=== PATIENT | female | born 1955 | race Caucasian/White ===

== ENCOUNTER 2017-07-20 11:15 | Inpatient (IN) ==
[2017-07-20] MEDS ORDERED: DUONEB (A & A) INH ONE (11:29)
[2017-07-20] MEDS ORDERED: PULMICORT INH ONE (11:29)
[2017-07-20] MEDS ORDERED: SOLU-MEDROL IV ONE (11:29)
[2017-07-20] MEDS ORDERED: ATIVAN ONE (11:29)
[2017-07-20] MEDS ORDERED: ATIVAN IV ONE ×2 (11:32→13:03)
[2017-07-20 11:48] LABS: BASO% 0.6 % (0.0-0.8); HEMATOCRIT 39.5 % (37.0-47.0); HEMOGLOBIN 13.9 g/dL (12.0-16.0); IMM GRAN# 0.02 X1000 (0.0-0.04); IMM GRAN% 0.2 % (0.0-0.5); LYMPH# 0.53 X1000 (1.2-3.4); LYMPH% 6.1 % (20.5-51.1); MANUAL DIFF NEEDED? NO; MCH 31.1 PG (27-31); MCHC 35.2 g/dL (33-37); MCV 88.4 FL (81-99); MONO# 1.03 X1000 (0.11-0.59); MONO% 11.8 % (1.7-9.3); MPV 9.6 FL (7.4-10.4); NEUT% 81.3 % (42.2-75.2); PLT 369 X1000 (130-400); RBC 4.47 XMIL (4.2-5.4)
[2017-07-20 11:54] LABS: BE 2.7 mmoll (-3.0-3.0); BLOOD TYPE ARTERIAL; DRAW SITE L RADIAL; METHB 1.3 % (0.0-1.5); O2(CT) 17.3 mL/dL (15.0-23.0); PO2(98.6) 56 mmHg (60-100); SAMPLE BLOOD; SAO2 91.5 % (95.0-100.0); THB 14.2 g/dL (11.5-17.4); pH(98.6) 7.32 (7.35-7.45)
[2017-07-20 12:08] LABS: AGAP 18; ALBUMIN 2.8 g/dL (3.5-5.0); ALKALINE PHOSPHATASE 152 U/L (32-104); BUN 5 mg/dL (8-22); CALCIUM 8.9 mg/dL (8.8-10.2); CHLORIDE 77 mmol/L (98-107); CK PROFILE 215 U/L (24-173); COSMO 239; GOT 26 U/L (10-30); GPT 17 U/L (10-36); MAGNESIUM 1.6 mg/dL (1.5-2.7); POTASSIUM 2.9 mmol/L (3.5-5.1); TCO2 23 mmol/L (25-35); TOTAL PROTEIN 7.6 g/dL (6.3-8.3)
[2017-07-20 12:10] LABS: SODIUM 118 mmol/L (136-145)
[2017-07-20 12:12] LABS: PTT PL 33.1 Seconds (22.6-43.9)
[2017-07-20] MEDS ORDERED: NS 1,000 ML IV ONE (12:18)
[2017-07-20 12:23] LABS: PCO2(98.6) 59 mmHg (35-45)
[2017-07-20 12:24] LABS: ALLEN TEST YES; MODALITY CANNULA
--- NOTE | 2017-07-20 12:29 | Diag Imaging Result Doc PS360 ---
EXAM: CHEST-2 VIEWS HISTORY: SOB TECHNIQUE: PA and lateral chest COMMENT: There is increased interstitial opacity bilaterally. There are no previous studies available for comparison. The heart size and pulmonary vascularity are within normal limits. IMPRESSION: Possibility of interstitial fibrosis or pneumonitis cannot be excluded. Advise comparison with previous studies. Electronically signed by Valdemar Wade 07/20/2017 12:26 PM
--- NOTE | 2017-07-20 12:30 | EKG Report ---
Test Performed on : 07/20/2017 11:52:19 AM Test Reason : CHEST PAIN Blood Pressure : / mmHG Vent. Rate : 104 BPM Atrial Rate : 104 BPM P-R Int : 156 ms QRS Dur : 090 ms QT Int : 362 ms P-R-T Axes : 080 065 063 degrees QTc Int : 476 ms Sinus tachycardia. with premature supraventricular complexes. Nonspecific ST abnormality Abnormal ECG No previous ECGs available Unconfirmed Result
[2017-07-20] MEDS ORDERED: LEVAQUIN 500 MG/D5W 500 MG/100 ML IVPB IV ONE (12:48)
[2017-07-20] MEDS ORDERED: KLOR-CON PO ONE (12:48)
[2017-07-20 12:49] LABS: CK INDEX 5.2 (0.0-2.5)
--- NOTE | 2017-07-20 13:23 | PROVIDER DOCUMENTATION ---
This chart was entered by Sherin Zendejas Scribe, acting as scribe for Sundar Romero MD. HPI-Respiratory General - General Chief Complaint: Weakness Stated Complaint: difficulty breathing Time Seen by Provider: 07/20/17 11:28 Source: patient, EMS Allergies/Adverse Reactions: Patient Allergies Allergy/AdvReac Type Severity Reaction Status Date / Time ampicillin Allergy RASH Verified 07/20/17 11:30 aspirin Allergy RASH Verified 07/20/17 11:30 Estrogens Allergy RASH Verified 07/20/17 11:30 meperidine [From Demerol] Allergy RASH Verified 07/20/17 11:30 Penicillins Allergy RASH Verified 07/20/17 11:30 tetracycline Allergy RASH Verified 07/20/17 11:30 - History of Present Illness-Resp Nature of Presenting Problem: Pt is a 62 y/o F presents to the ED via EMS for SOB. Pt states SOB has been present for "weeks" but it worsened today. Pt states cough with sputum. Pt states hx of COPD. Pt states she is a smoker. Pt denies chest pain. Quality of Pain: reports: tightness Severity in ED: reports: moderate Onset/Duration: reports: other ("weeks") Timing: reports: still present, getting worse Exposure: reports: unknown cause Cough Quality/Degree: reports: moderate, sputum (yellow) Current Respiratory Medication Therapy: Initiated see nurses note Modifying Factors: improves with: nothing Associated Symptoms: reports: cough, shortness of breath, sweaty Similar Symptoms Previously?: Yes (Pt states present for "weeks" ) Recently seen or treated by another doctor?: No Review of Systems - Adult - REVIEW OF SYSTEMS - ADULT Constitutional: reports: fatique. denies: chills, fever Eyes: reports: no symptoms reported Ears, Nose, Mouth & Throat: reports: no symptoms reported Cardiovascular: reports: no symptoms reported Respiratory: reports: cough, shortness of breath. denies: wheezing Gastrointestinal: reports: no symptoms reported Genitourinary: reports: no symptoms reported Musculoskeletal: reports: no symptoms reported Integumentary: reports: no symptoms reported Neurological: reports: no symptoms reported Psychiatric: reports: no symptoms reported Endocrine: reports: excessive sweating. denies: change in skin pigment, increased thirst Hematologic/Lymphatic: reports: no symptoms reported Allergic/Immunologic: reports: no symptoms reported All Other Systems: Reviewed and Negative Past History - Adult - PAST MEDICAL HISTORY-ADULT Review of Records: reports: Nursing Assessment Review, Medications Reviewed, Social history reviewed & non-contributory. Major Childhood Illnesses: reports: denies history Cardiovascular: reports: denies history Respiratory: reports: COPD Gastrointestinal: reports: denies history Obstetrical/Gynecological: reports: denies history Genitourinary: reports: denies history Musculoskeletal: reports: denies history Neurological: reports: denies history Endocrine/Immune: reports: denies history Other Conditions: reports: denies history - PRIOR SURGERIES/PROCEDURES Surgical/Procedure History: reports: reviewed, not pertinent, back/neck - IMMUNIZATION STATUS Childhood Immunizations: See Nurse Assessment Flu Vaccine: See Nurse Assessment - FAMILY HISTORY Family History: reviewed, not pertinent - SOCIAL HISTORY Smoking: cigarettes, greater than 1 pack/day Provider spent 3-5 mins advising pt. on dangers of tobacco.: Discussed manners to quit use, and f/u contacts for add'l counseling. Substance Use: denies Living Situation: family Physical Exam-General - PHYSICAL EXAM-ADULT Initial Vital Signs Reviewed: Yes - CONSTITUTIONAL General Appearance: alert, moderate distress, other (ill in appearance). negative: appears well, lethargic, slow to respond - EYES Eyes: PERRL/EOMI, pink conjunctivae. negative: pale conjunctivae, sunken eyes - HEAD, EARS, NOSE, MOUTH & THROAT HENMT: normal ENT inspection. negative: angioedema, hearing deficit - NECK Neck: normal inspection. negative: lymphadenopathy, tender lateral - RESPIRATORY Respiratory: chest non-tender, lungs clear, decreased breath sounds, increased rate. negative: normal breath sounds, rales, wheezing - CARDIOVASCULAR Cardiovascular: normal peripheral pulses, tachycardia. negative: regular rate, rhythm, systolic murmur - GASTROINTESTINAL (ABDOMEN) Abdominal Exam: normal bowel sounds, non tender, soft. negative: distended, rebound - LYMPHATIC Lymphatic: no adenopathy. negative: enlargement, streaking - MUSCULOSKELETAL Back Exam: normal inspection. negative: ecchymosis, swelling Extremity: normal inspection. negative: deformity, erythema, swelling - SKIN Integumentary: normal color, diaphoresis. negative: warm/dry, ecchymosis, erythema, rash - NEUROLOGIC Neurologic: grossly normal. negative: aphasia, facial droop - PSYCHIATRIC Psych/Mental Status: normal mood/affect, oriented x 3. negative: paranoid, tearful Progress - PLAN OF CARE/RESULTS Progress/Plan/Lab Results: Vital Signs - 8 hr 07/20/17 11:24 07/20/17 11:29 07/20/17 11:53 Pulse Rate 107 H 103 H 106 H Respiratory Rate 30 H 30 H 22 Blood Pressure 123/89 152/110 O2 Sat by Pulse Oximetry 83 L 92 L 97 07/20/17 12:06 07/20/17 12:49 Pulse Rate 106 H 110 H Respiratory Rate 26 H 26 H Blood Pressure 169/82 123/89 O2 Sat by Pulse Oximetry 96 96 Laboratory Results - last 24 hr 07/20/17 07/20/17 07/20/17 11:28 11:35 11:35 WBC RBC Hgb Hct MCV MCH MCHC RDW Std Deviation Plt Count MPV Immature Gran % (Auto) Neut % (Auto) Lymph % (Auto) Cook % (Auto) Eos % (Auto) Baso % (Auto) Immature Gran # (Auto) Neut # (Auto) Lymph # (Auto) Cook # (Auto) Eos # (Auto) Baso # (Auto) PT INR APTT (Factor Assay) D-Dimer Specimen Type ARTERIAL Sample Site L RADIAL pH 7.32 L pCO2 59 H* pO2 56 L HCO3 26.7 H Base Excess 2.7 Oxyhemoglobin 86.9 L* ABG O2 Sat (Calculated) 17.3 ABG O2 Saturation 91.5 L ABG Carboxyhemoglobin 3.80 H ABG Methemoglobin 1.3 Sree Test YES A-a O2 Difference 127.0 Total Hemoglobin 14.2 Lactate 1.20 Liter Flow 4.0 Blood Gas Modality CANNULA FiO2 % 36.0 Sodium 118 L* Potassium 2.9 L Chloride 77 L Carbon Dioxide 23 L Anion Gap 18 BUN 5 L Creatinine 0.4 L Estimated GFR/1.73 m2 > 60 BUN/Creatinine Ratio 13 Glucose 152 H Calculated Osmolality 239 Calcium 8.9 Magnesium 1.6 Total Bilirubin 0.60 AST 26 ALT 17 Alkaline Phosphatase 152 H Creatine Kinase 215 H Creatine Kinase Index 5.2 H CK-MB (CK-2) 11.20 H Troponin T < 0.010 Xef-B-Gqntbkonqqn Pept Total Protein 7.6 Albumin 2.8 L Globulin 5.0 Albumin/Globulin Ratio 1.0 07/20/17 07/20/17 07/20/17 11:35 11:35 11:35 WBC 8.74 RBC 4.47 Hgb 13.9 Hct 39.5 MCV 88.4 MCH 31.1 H MCHC 35.2 RDW Std Deviation 12.9 Plt Count 369 MPV 9.6 Immature Gran % (Auto) 0.2 Neut % (Auto) 81.3 H Lymph % (Auto) 6.1 L Cook % (Auto) 11.8 H Eos % (Auto) 0.0 Baso % (Auto) 0.6 Immature Gran # (Auto) 0.02 Neut # (Auto) 7.11 H Lymph # (Auto) 0.53 L Cook # (Auto) 1.03 H Eos # (Auto) 0.00 Baso # (Auto) 0.05 PT 14.0 INR 1.00 APTT (Factor Assay) 33.1 D-Dimer 1.41 H Specimen Type Sample Site pH pCO2 pO2 HCO3 Base Excess Oxyhemoglobin ABG O2 Sat (Calculated) ABG O2 Saturation ABG Carboxyhemoglobin ABG Methemoglobin Sree Test A-a O2 Difference Total Hemoglobin Lactate Liter Flow Blood Gas Modality FiO2 % Sodium Potassium Chloride Carbon Dioxide Anion Gap BUN Creatinine Estimated GFR/1.73 m2 BUN/Creatinine Ratio Glucose Calculated Osmolality Calcium Magnesium Total Bilirubin AST ALT Alkaline Phosphatase Creatine Kinase Creatine Kinase Index CK-MB (CK-2) Troponin T Bzj-Y-Vizxhmhxmot Pept 3941 H Total Protein Albumin Globulin Albumin/Globulin Ratio Orders Category Date Time Status CHEST-2 VIEWS [RAD] Stat Exams 07/20/17 11:[address] ANGIOGRM/PULMONARY ARTERIES [CT] Stat Exams 07/20/17 13:03 Ordered ABG [RESP] Routine Lab 07/20/17 11:28 Completed BLOOD CULTURE [BLDCUL] Stat Lab 07/20/17 11:29 Ordered CBC WITH ELECTRONIC DIFF [HEME] Stat Lab 07/20/17 11:35 Completed CK PROFILE [SP CHEM] Stat Lab 07/20/17 11:35 Completed COMPREHENSIVE METABOLIC PANEL [CHEM] Stat Lab 07/20/17 11:35 Com[address] D-DIMER PL [COAG] Stat Lab 07/20/17 11:35 Completed MAGNESIUM [CHEM] Stat Lab 07/20/17 11:35 Completed PRO B-NATRIURETIC PEPTIDE Stat Lab 07/20/17 11:35 Completed [address]IME WITH INR PL [COAG] Stat Lab 07/20/17 11:[address] [COAG] Stat Lab 07/20/17 11:35 Completed TROPONIN T Stat Lab 07/20/17 11:35 Completed 0.9% Sodium Chloride Inj [Ns] 1,000 ml Med 07/20/17 12:18 Active IV 250 mls/hr Albuterol 2.5MG/Ipratrop 0.5MG [Duoneb (A & A)] Med 07/20/17 11:29 Discontinued 6 ml INH NOW ONE Budesonide [Pulmicort] Med 07/20/17 11:29 Discontinued 0.5 mg INH NOW ONE Levofloxacin 500 mg/D5w [Levaquin 500 mg/D5w] Med 07/20/17 12:48 Active 500 mg in 100 ml IV NOW Lorazepam [Ativan] Med 07/20/17 11:32 Discontinued 1 mg IV NOW ONE Lorazepam [Ativan] Med 07/20/17 13:03 Discontinued 1 mg IV NOW ONE Lorazepam [Ativan] Med 07/20/17 11:29 Discontinued 2 mg .ROUTE .STK-MED ONE Methylprednisolone Sod Succ [Solu-Medrol] Med 07/20/17 11:29 Discontinued 125 mg IV NOW ONE Potassium Chloride E.r. [Klor-Con] Med 07/20/17 12:48 Discontinued 40 meq PO NOW ONE Aerosol Treatments Routine Oth 07/20/17 11:31 Active Aerosol Treatments Stat Oth 07/20/17 11:31 Active EKG [EKG] Stat Ther 07/20/17 11:29 Draft Result Diagrams: 07/20/17 11:35 07/20/17 11:35 - EKG 1 Time of EKG reading by physician:: 11:52 EKG Read and Signed by:: Sundar Romero EKG Interpretation (*Must complete 3 of following elements*): Abnormal Rate: 104 Rhythm: sinus tachycardia with premature supraventricular complexes Comments: nonspecific ST abnormality. - XRAY 1 XRAY Study: Chest Impression: Abnormal (possiblity of interstitial fibrosis or pneumonitis cannot be excluded. Advise comparison with previous studies.) - CONSULTS/PCP/HOSPITALIST Notification #1 *Consult/PCP/Hospitalist*: Dr. Matthews Time Discussed: 13:15 Reason/Comments: Dr. Romero consulted with Dr. Matthews about Pt Consult Disposition: Admit Departure - Departure Date of Disposition Decision: 07/20/17 Time of Disposition Decision: 13:15 DIAGNOSIS: COPD exacerbation, Respiratory failure Disposition: ADMITTED INPATIENT 09 Certified Medical Emergency: Emergent Condition: Serious Referrals and Follow-Ups: None,PCP [Primary Care Provider] - - Critical Care Note This patient required my direct & personal management of CC.: Yes Total Time (mins): 40 Critical Care Statement: This patient required my direct personal management to treat or rule out processes, the absence of which, could potentiallly result in sudden, clinically significant life or limb threatening deterioration. Attestation - Physician/ DASHA Attestation Patient care was provided by Advanced Practice Provider:: No The physician spent face to face time with patient:: Yes Advanced Practice Provider documentation review:: Supervising physician onsite and consulted in the evaluation and care of this patient. The physician did have a face to face encounter with the patient. This chart was documented by the indicated scribe, (Sherin Zendejas Scribe) and accurately reflects the services I performed and decisions made by me, Sundar Romero MD, as attested by the provider's signature.
--- NOTE | 2017-07-20 13:47 | Diag Imaging Result Doc PS360 ---
EXAM: CT ANGIOGRM/PULMONARY ARTERIES HISTORY: SOB with elevated D-dimer TECHNIQUE: CT chest with intravenous contrast. Arterial protocol with MIP images. Dose reduction technique. COMPARISON: None. FINDINGS: No pleural effusions. No cardiomegaly. No thoracic aortic aneurysm or dissection. Normal opacification of the pulmonary arteries and their major branches. There are several mildly enlarged mediastinal lymph nodes. There are multifocal patchy nodular infiltrates bilaterally. IMPRESSION: 1.No pulmonary emboli 2.Multifocal bilateral patchy nodular infiltrates Electronically signed by Issac Ron 07/20/2017 1:45 PM
[2017-07-20] MEDS: ATIVAN IV PRN ×2 (15:50→19:45)
[2017-07-20] MEDS: NS 1,000 ML IV SCH ×2 (15:51→23:25)
[2017-07-20] MEDS: NICODERM PATCH TD SCH (15:53)
[2017-07-20] MEDS: CLINDAMYCIN 600 MG/NS 600 MG/50 ML IVPB IV SCH ×2 (15:58→23:24)
[2017-07-20] MEDS: LEVOPHED 8 MG in D5 1/2 NS 250 ML IV SCH ×2 (16:28→23:26)
[2017-07-20 17:13] LABS: BE -1.4 mmoll (-3.0-3.0); BLOOD TYPE ARTERIAL; DRAW SITE R BRACHIAL; METHB 1.1 % (0.0-1.5); O2(CT) 18.3 mL/dL (15.0-23.0); PO2(98.6) 99 mmHg (60-100); SAMPLE BLOOD; SAO2 99.1 % (95.0-100.0); THB 13.6 g/dL (11.5-17.4); pH(98.6) 7.27 (7.35-7.45)
[2017-07-20 17:17] LABS: PCO2(98.6) 58 mmHg (35-45)
[2017-07-20 17:18] LABS: MODALITY BI PAP; SRATE 12 BPM
[2017-07-20 17:32] LABS: BILIRUBIN URINE NEGATIVE (NEGATIVE); BLOOD URINE 2+ (NEGATIVE); CLARITY CLEAR (CLEAR); COLOR YELLOW; GLUCOSE URINE NEGATIVE (NEGATIVE); LEUKOCYTES URINE TRACE (NEGATIVE); NITRITE URINE NEGATIVE (NEGATIVE); PH URINE 6.5; UROBILINOGEN URINE NORMAL
[2017-07-20 17:43] LABS: URINE CAST NONE SEEN /LPF; URINE CRYSTAL NONE SEEN /HPF; URINE CULTURE PL NEEDED? YES; URINE EPITHELIAL CELLS >10 /HPF (<10); URINE SOURCE CATH; URINE WBC <10 /HPF (<10)
--- NOTE | 2017-07-20 17:52 | Extremity Venous Study ---
EXAM: Venous U/S Bilateral Legs HISTORY: elevated ddimer TECHNIQUE: Venous ultrasound of the lower extremities with color Doppler and compression COMMENT: The deep veins of the lower extremities are compressible and demonstrate color Doppler flow, although there is pulsatile flow. IMPRESSION: No evidence of deep venous thrombosis. Pulsatile venous flow which is suggestive of right heart failure. Electronically signed by Valdemar Wade 07/20/2017 5:49 PM
--- NOTE | 2017-07-20 18:17 | HISTORY AND PHYSICAL ---
PRIMARY CARE PHYSICIAN: Out of state in [place]. CHIEF COMPLAINT: Shortness of breath for the past several weeks that got worse today. HISTORY OF PRESENTING ILLNESS: This is a 62-year-old, female who presents with family to [facility] ER with complaints of shortness of breath that has been present for the past several weeks but worsened today. Workup in the ER showed a chest x-ray. The possibility of interstitial fibrosis or pneumonitis could not be excluded. LABORATORY DATA: White blood cell count that was normal at 8.74. She had an elevated D-dimer of 1.41. ABG showed a pH of 7.32, pCO2 of 59, PO2 56 bicarbonate 26.7, oxyhemoglobin 86.9 on 4 L via nasal cannula. She was then placed on BiPAP. Her sodium was 118, potassium 2.9, chloride was 77. Cardiac enzymes showed a creatine kinase of 215, CK-MB of 11.20 with a negative troponin of 0.010. We did a pulmonary arteriogram due to the elevated D-dimer that showed no pulmonary emboli but it did show multifocal bilateral patchy nodular infiltrates. She had some hypertension when she first arrived at 152/110 but now has dropped her pressure to 62/49 despite IV hydration so she is also noted to be mildly tachycardic at 110, so we will start her on a Levophed drip per protocol to keep her systolic blood pressure greater than 100 and infuse to maintain a map of 60 mmHg. She is being admitted to the Intensive Care Unit for further evaluation and treatment. PAST MEDICAL HISTORY: COPD and hypertension. PAST SURGICAL HISTORY: Back and neck surgery. FAMILY HISTORY: Noncontributory. SOCIAL HISTORY: She currently lives with family. She is a 3 pack a day smoker for many years but an unknown amount. Family at bedside could not give a specific date. No alcohol or illicit drug use. ALLERGIES: Ampicillin, aspirin, estrogen, meperidine, penicillin and tetracycline. HOME MEDICATIONS: We do not have a current list at this time as she is from [place] state and unable to get this information. We will attempt to get this from family. LABORATORY DATA: White blood cell count of 8.74, hemoglobin of 13.9, hematocrit 39.5, platelets of 369,000. PT and INR of 14 and 1.0 with a D-dimer of 1.41. ABG showed a pH of 7.32, pCO2 of 59, PO2 56, bicarbonate 26.7, oxyhemoglobin of 86.9 and that was on 4 L via nasal cannula. She is currently on BiPAP. Sodium of 118, potassium 2.9, chloride 77, CO2 23, BUN 5, creatinine 0.4, glucose 152, creatine kinase of 215, CK-MB of 11.20, troponin of less than 0.010 with a proBNP of 3941. Chest x-ray showing the possibility of interstitial fibrosis or pneumonitis could not be excluded. Pulmonary arteriogram showed no evidence of pulmonary emboli but multifocal bilateral patchy nodular infiltrates. EKG showed sinus tachycardia with PVC at 104. REVIEW OF SYSTEMS: Unable to obtain. PHYSICAL EXAMINATION: VITAL SIGNS: On arrival, she had a pulse of 107, respirations 30, blood pressure 123/89, she was saturating 83% on room air. Her blood pressure stayed at 152/110 to 151/63 until she arrived to the unit. Now she currently has a pulse of 110 with a blood pressure of 62/49. GENERAL: This is a 62-year-old, female, lying in bed unable answer questions at this time. She is unable to answer due to having her BiPAP in place and is confused. HEENT: Normocephalic and atraumatic. Pupils are equal, round, reactive to light. Extraocular movements are intact. Oropharynx and nares are clear. NECK: Supple. LUNGS: Decreased breath sounds to all lung siu. Equal lung expansion and chest wall movement noted. HEART: Regular rate and rhythm. No murmurs, rubs, or gallops. ABDOMEN: Soft, nontender, nondistended. Bowel sounds are present x4 quadrants. EXTREMITIES: No clubbing, cyanosis, or edema. NEUROLOGICAL: Unable to assess at this time. ASSESSMENT: 1. Acute respiratory failure. 2. Bilateral pneumonia. 3. Acute chronic obstructive pulmonary disease exacerbation. 4. Hyponatremia. 5. Hypokalemia. 6. Elevated D-dimer. 7. Hypotension. PLAN: 1. She was admitted to the Intensive Care Unit and placed on telemetry, O2 per protocol and is currently on BiPAP. 2. We will do a bilateral lower extremity venous Doppler. We will check another BMP at 5 p.m. today. 3. She will be on Levophed per protocol to keep her systolic blood pressure greater than 100, Levaquin 500 mg IV q.24 hours, clindamycin 600 IV q.8 hours, DuoNebs q.4 hours and Solu-Medrol 80 mg IV q.8 hours, nicotine patch 21 mg transdermally daily, normal saline at 100 mL an hour, Ativan 1 mg IV q.4 hours p.r.n. for agitation. 4. We will recheck labs in the a.m. She was supplemented with potassium in the emergency room so we will not give anymore at this time. Dictated by WILLIAN Marquez for Hermes Matthews MD cc: WILLIAN Marquez MD
[2017-07-20 18:26] LABS: AGAP 15; BUN 8 mg/dL (8-22); CALCIUM 8.7 mg/dL (8.8-10.2); CHLORIDE 82 mmol/L (98-107); COSMO 246; POTASSIUM 3.6 mmol/L (3.5-5.1); SODIUM 121 mmol/L (136-145); TCO2 25 mmol/L (25-35)
[2017-07-20] MEDS: DUONEB (A & A) INH SCH ×2 (19:00→22:30)
[2017-07-20] MEDS ORDERED: ATIVAN IV PRN (20:16)
[2017-07-20] MEDS: ATIVAN IV SCH ×2 (20:32→21:51)
[2017-07-20] MEDS: SOLU-MEDROL IV SCH (20:54)
[2017-07-21] MEDS: NS 1,000 ML IV SCH ×3 (01:08→20:00)
[2017-07-21] MEDS: DUONEB (A & A) INH SCH ×6 (02:50→22:48)
--- NOTE | 2017-07-21 03:52 | HISTORY AND PHYSICAL ---
ADDENDUM: The patient was seen and examined by myself as well as nurse practitioner. A full note per nurse practitioner. The patient currently is nonverbal, she is on BiPAP. The history is per her daughter notes that Ms. Ring does drink at least 6 beers a day, stopped 4-5 days ago. She has been in town approximately a week. She has had increased cough, congestion, increased shortness of breath. Today if symptoms worsen so she was brought to the emergency department. PHYSICAL: Vitals: Temperature 98.2 degrees, pulse 102, respiratory 32, BP 98/47 currently on 100% non-rebreather on BiPAP as well as on Levophed. Lungs: Are decreased breath sounds bilaterally. Abdomen: Soft. Will admit patient to the ICU, BiPAP, Levophed, antibiotics, will follow. Certainly concerned for DTs as she stopped drinking approximately 4-5 days ago. Will continue Ativan and will follow. cc: Hermes Matthews MD
[2017-07-21] MEDS: SOLU-MEDROL IV SCH ×3 (04:24→21:18)
[2017-07-21] MEDS: ATIVAN IV SCH (04:24)
[2017-07-21] MEDS: CLINDAMYCIN 600 MG/NS 600 MG/50 ML IVPB IV SCH ×2 (06:35→18:04)
[2017-07-21 06:45] LABS: BASO% 0.1 % (0.0-0.8); HEMATOCRIT 34.8 % (37.0-47.0); HEMOGLOBIN 11.7 g/dL (12.0-16.0); IMM GRAN# 0.05 X1000 (0.0-0.04); IMM GRAN% 0.6 % (0.0-0.5); LYMPH# 0.42 X1000 (1.2-3.4); LYMPH% 5.1 % (20.5-51.1); MANUAL DIFF NEEDED? YES; MCH 29.9 PG (27-31); MCHC 33.6 g/dL (33-37); MONO# 0.62 X1000 (0.11-0.59); MONO% 7.5 % (1.7-9.3); MPV 9.8 FL (7.4-10.4); NEUT% 86.7 % (42.2-75.2); PLT 489 X1000 (130-400); RBC 3.91 XMIL (4.2-5.4)
[2017-07-21] MEDS: LEVOPHED 8 MG in D5 1/2 NS 250 ML IV SCH ×4 (06:48→15:07)
[2017-07-21 06:52] LABS: AGAP 13; BUN 14 mg/dL (8-22); CALCIUM 8.4 mg/dL (8.8-10.2); CHLORIDE 90 mmol/L (98-107); COSMO 263; POTASSIUM 3.3 mmol/L (3.5-5.1); SODIUM 128 mmol/L (136-145); TCO2 25 mmol/L (25-35)
[2017-07-21 07:27] LABS: BANDS 1 % (0-1); LYMPHS 4 % (21-51)
[2017-07-21] MEDS: NICODERM PATCH TD SCH (08:12)
[2017-07-21] MEDS: ATIVAN IV PRN (09:35)
[2017-07-21] MEDS ORDERED: HALDOL IV PRN (11:36)
[2017-07-21] MEDS ORDERED: ATIVAN IV PRN (11:36)
[2017-07-21] MEDS ORDERED: SODIUM CHLORIDE 0.9% INJ SCH (11:45)
[2017-07-21] MEDS ORDERED: PROTONIX IV SCH (11:45)
[2017-07-21] MEDS ORDERED: LOVENOX SUBQ SCH (11:45)
[2017-07-21 12:15] LABS: BLOOD TYPE ARTERIAL; DRAW SITE R RADIAL; METHB 1.6 % (0.0-1.5); O2(CT) 15.5 mL/dL (15.0-23.0); PO2(98.6) 78 mmHg (60-100); SAMPLE BLOOD; THB 11.7 g/dL (11.5-17.4)
[2017-07-21 12:23] LABS: ALLEN TEST YES; MODALITY BI PAP; PCO2(98.6) 53 mmHg (35-45)
--- NOTE | 2017-07-21 12:52 | PROGRESS NOTE ---
DATE: 07/21/2017 SUBJECTIVE: Patient is disoriented and confused, on the BiPAP. She had issues with agitation yesterday and came, and ended up in respiratory failure, shock, and is in the ICU on BiPAP and pressors. OBJECTIVE: Vital Signs: Blood pressure 113/52, heart rate of 97, respiratory rate of 23, 98% on 30%, 97.1 temperature. No fever noted. Cardiovascular: Tachycardic. Pulmonary: Diffuse end- expiratory wheezes. GI: Soft, nontender, nondistended. Bowel sounds were positive. Extremities: No clubbing or cyanosis. Lymphatics: No peripheral edema. Vascular: Her foot is cold. Pulses, I could not palpate pulse at the dorsalis pedal pulse or the popliteal/ foot is not discolored per se but is definitely colder than her other foot. We are have difficulty getting Dopplering of the pulse as well. PROBLEM LIST: 1. Acute respiratory failure, hypercapnic, hypoxic, secondary to reported pneumonia. We will continue empiric antibiotics and pulmonary toilet. 2. Chronic obstructive pulmonary disease exacerbation. She is on steroids, antibiotics, and breathing treatments. We will follow. I agree with ruling out a deep venous thrombosis. 3. Hyponatremia and hypokalemia. We are supplementing and following. Hyponatremia likely related to chronic alcohol use, dehydration. She is not on any medications that would necessarily lower her sodium and again that has clinically improved. We will check urine electrolytes and follow. 4. Also probably need to rule out congestive heart failure. She does have an elevated proBNP and interstitial infiltrates. 5. Pulseless foot. We will get arterial Dopplers. I think she will end up needing arterial studies and she may need surgical intervention if those studies are abnormal. If there is decreased flow, we will need to get a CT angiogram of her leg and a vascular consult. 6. Shock. We are still trying to work on getting her off blood pressure medications, vasopressor. She currently is on Levophed. I am going to give her a bolus of fluid and see if we can try to get her off of that. 7. Encephalopathy, may be multifactorial related to her sodium, related to alcohol use, possible withdrawal. Apparently, she has been off alcohol for 4 or 5 days. I will go ahead and get a head CT too. She has a nonfocal examination, just because she is otherwise unstable. DISPOSITION: Pending her clinical course. cc: Austin Casey MD
[2017-07-21] MEDS ORDERED: LEVAQUIN 500 MG/D5W 500 MG/100 ML IVPB IV SCH (13:00)
[2017-07-21] MEDS ORDERED: M V I IV SCH ×6 (14:00)
[2017-07-21] MEDS ORDERED: FOLIC ACID IV SCH ×6 (14:00)
[2017-07-21] MEDS ORDERED: THIAMINE IV SCH ×6 (14:00)
[2017-07-21] MEDS ORDERED: [UNRECOGNIZED DRUG - OTHER] IV SCH ×6 (14:00)
[2017-07-21] MEDS ORDERED: POTASSIUM CHLORIDE IV SCH ×6 (14:00)
[2017-07-21] MEDS ORDERED: HEPARIN 25,000 UNITS/D5W 25,000 UNIT/250 ML IV.SOLN IV SCH (15:00)
[2017-07-21] MEDS ORDERED: MUCOMYST 20% XX SCH (15:00)
--- NOTE | 2017-07-21 15:11 | Diag Imaging Result Doc PS360 ---
EXAM: CT HEAD W/O CONTRAST INDICATION: encephalopathy TECHNIQUE: COMPARISON: None. FINDINGS: There is no definite acute infarct given the limited sensitivity of CT versus MRI. There is no discrete intracranial mass, mass effect, or intracranial hemorrhage. The surrounding soft tissues and bony structures are essentially unremarkable. IMPRESSION: No evidence of acute intracranial pathology. Electronically signed by Cliff Santiago 07/21/2017 3:09 PM
--- NOTE | 2017-07-21 16:15 | Diag Imaging Result Doc PS360 ---
EXAM: CT ANGIOGRAM/AORTA W/RUNOFF INDICATION: cold pulseless, foot TECHNIQUE: In addition to standard thin section axial CTA images, coronal and sagittal reformations and MIPS were obtained. COMPARISON: None. FINDINGS: There is extensive atherosclerotic calcification involving the abdominal aorta that is worst distally where there is fairly severe aortic stenosis. However, it does appear to remain patent. There is no aortic aneurysm. There is extensive iliac artery atherosclerotic disease with high-grade stenosis of the left common iliac artery and complete occlusion of the right common iliac artery. There is reconstitution on the right at the common femoral artery. There is mild atherosclerotic calcification at the origins of the SMA and celiac trunk with mild narrowing. There remain patent. There is mild right renal artery stenosis and moderate left renal artery stenosis at the origins. There is excessive motion artifact at the lung bases. However, there is patchy airspace infiltrate at the right lung base. There is no evidence of acute pathology involving the abdomen or pelvis. Right lower extremity: As stated above, the occluded right external iliac artery is reconstituted at the common femoral artery. There is mild atherosclerotic calcification involving the common femoral artery. It remains patent. There is atherosclerotic calcification involving the superficial femoral artery that becomes fairly severe distally where there is focal subtotal occlusion. It is reconstituted, however. There is extensive atherosclerotic disease involving the popliteal artery. However, there is excessive motion artifact throughout its course to it is difficult to evaluate it. The anterior tibial artery is patent until it reaches the ankle and cannot be identified distal to this. The posterior tibial artery remains patent throughout its course and provides runoff to the foot. The peroneal artery is diminutive distally and cannot be identified below the level of the ankle. Left lower extremity: There is atherosclerotic calcification involving the common femoral artery with mild narrowing. There is patchy atherosclerotic calcification throughout the course of the superficial femoral artery, which is moderate to severe distally where there is intermittent moderate to severe stenosis. There is popliteal artery atherosclerotic disease that is fairly extensive proximally where the artery is ectatic. It remains patent. There is mild atherosclerotic calcification at the proximal anterior tibial artery. It remains patent throughout its course providing runoff to the foot. The posterior tibial artery is patent throughout its course providing runoff to the foot. The peroneal artery is diminutive distally and cannot be identified below the level of the ankle. IMPRESSION: 1.Extensive aortoiliac atherosclerotic disease and atherosclerotic disease involving the arteries of both lower extremities as detailed above. 2.Patchy mild airspace consolidation at the right lung base. Electronically signed by Cliff Santiago 07/21/2017 4:13 PM
--- NOTE | 2017-07-21 17:37 | CONSULTATION ---
DATE OF CONSULTATION: 07/21/2017 REQUESTING PHYSICIAN: Hermes Matthews MD REASON FOR CONSULTATION: Pulseless right lower extremity. HISTORY OF PRESENT ILLNESS: A 72-year-old female who is currently altered and unable to give further history who apparently showed up at the emergency department at [facility] on 07/20/2017 with shortness of breath that had been getting worse in the last several weeks, but had acute exacerbation in the last day. There was a chest x-ray in the ER that showed interstitial fibrosis or pneumonitis that could not be excluded. She was admitted and started on BiPAP. It was noted this morning that she had what appeared to be a pulseless right lower extremity. The patient again is altered and I am unable to get any significant history, although apparently by report she has taken Pletal before. There is some concern that she might be going into delirium tremens from alcohol withdrawal. Again, there is no family to give a full history. PAST MEDICAL HISTORY: COPD and hypertension. PAST SURGICAL HISTORY: Back and neck surgery. SOCIAL: Lives with family. Apparently a smoker. Again, there is some report of alcohol intake, but I cannot ask the patient that directly because she is altered. ALLERGIES: Ampicillin, aspirin, estrogen, tetracycline. HOME MEDICATIONS: There was a report that she did take Pletal. FAMILY HISTORY: Unable to obtain secondary to patient's mental status. REVIEW OF SYSTEMS: Unable to obtain secondary to patient's mental status. PHYSICAL EXAMINATION: Current Vital Signs: Patient is currently afebrile. Temperature 98 degrees, pulse 114. Blood pressure 100 systolic. She is on Levophed drip. O2 saturation in the 90s on BiPAP. General: Altered, but resting in bed. She is currently undergoing an echocardiogram. HEENT: Normocephalic, atraumatic. Pupils equal, round, reactive to light. Mucous membranes moist. Oropharynx benign. She does have a BiPAP machine on. Neck: Supple. Trachea midline. Cardiovascular: Regular rate and rhythm. Lungs: Some coarse sounds noted. Abdomen: Soft, nontender, nondistended. Extremities: The right leg is cool compared to the left, but does not have any changes to suggest acute ischemia. She does have a slightly delayed capillary refill on that side. Vascular: She has what appears to be at least a biphasic dorsalis pedis and posterior tibial on the left foot. Difficult to find signals by Doppler on the right foot, although again, she has slightly delayed capillary refill. Neurologic: Patient is agitated. LABORATORY: CT scan independently reviewed and radiology report reviewed. It looks like the patient probably has right aortoiliac disease, but has reconstitution via her inferior epigastric artery on the right. This looks like along chronic problem. ASSESSMENT AND PLAN: A 62-year-old female with respiratory failure, shortness of breath, possible alcohol withdrawal and cool right lower extremity. 1. Respiratory distress and shortness of breath. At this time, she is on BiPAP. She is being transferred over to [facility] for Pulmonary support. At this time, we will watch her closely. She may need to be intubated, but we will defer to Pulmonology on this one. 2. Possible alcohol withdrawal. At this time, continued supportive measures. Hospitalist is following. 3. Multiple medical comorbidities. Currently being managed by the hospitalist service. 4. A pulseless right lower extremity. At this time, I am unable to get further history of any symptoms of claudication given her mental status. The way the CT angiography looks, it looks like it is likely a chronic problem because she has reconstitution of her vasculature and she does have flow noted all the way down to her calf on there CT angiography. I reviewed the images with Dr. Gilmore. She will likely need some kind of vascular intervention, but she is currently on Levophed, so we will need to get her of Levophed to know fully what her vascular exam is like. Once she is off Levophed, could consider stenting or bypass of this area, depending on her overall clinical condition. I appreciate the consult. cc: Abelardo Andrade MD
[2017-07-21] MEDS ORDERED: LEVOPHED 8 MG in D5 1/2 NS 250 ML IV SCH ×2 (19:30→20:30)
[2017-07-21] MEDS ORDERED: VANCOMYCIN IV PER PHARMACY MISC SCH (19:45)
[2017-07-21] MEDS: MUCOMYST 20% XX SCH (21:13)
[2017-07-21] MEDS ORDERED: VANCOMYCIN 1,250 MG in NS 250 ML IV ONE (22:00)
[2017-07-22] MEDS ORDERED: CLINDAMYCIN 600 MG/NS 600 MG/50 ML IVPB IV SCH (02:00)
[2017-07-22] MEDS: ATIVAN IV PRN ×7 (02:25→22:23)
[2017-07-22] MEDS: DUONEB (A & A) INH SCH ×6 (03:10→23:57)
[2017-07-22] MEDS: SOLU-MEDROL IV SCH ×3 (04:03→20:43)
[2017-07-22 04:32] LABS: ALLEN TEST YES; BE 1.7 mmoll (-3.0-3.0); BLOOD TYPE ARTERIAL; DRAW SITE R RADIAL; METHB 0.7 % (0.0-1.5); O2(CT) 17.3 mL/dL (15.0-23.0); PO2(98.6) 138 mmHg (60-100); SAMPLE BLOOD; SAO2 99.5 % (95.0-100.0); THB 12.4 g/dL (11.5-17.4); pH(98.6) 7.31 (7.35-7.45)
[2017-07-22 04:34] LABS: MODALITY BI PAP; PCO2(98.6) 58 mmHg (35-45)
[2017-07-22] MEDS: HALDOL IV PRN (04:50)
[2017-07-22] MEDS: NS 1,000 ML IV SCH (05:03)
[2017-07-22 05:05] LABS: MAGNESIUM 2.4 mg/dL (1.5-2.7)
[2017-07-22] MEDS: MORPHINE IV PRN ×3 (05:36→22:24)
[2017-07-22 06:17] LABS: AGAP 12; ALBUMIN 2.6 g/dL (3.5-5.0); ALKALINE PHOSPHATASE 108 U/L (32-104); BUN 8 mg/dL (8-22); CALCIUM 7.9 mg/dL (8.8-10.2); CHLORIDE 101 mmol/L (98-107); COSMO 275; DIRECT BILIRUBIN < 0.20 mg/dL (0.00-0.20); GOT 13 U/L (10-30); GPT 10 U/L (10-36); POTASSIUM 3.9 mmol/L (3.5-5.1); SODIUM 138 mmol/L (136-145); TCO2 25 mmol/L (25-35); TOTAL BILIRUBIN 0.19 mg/dL (0.20-1.00); TOTAL PROTEIN 5.1 g/dL (6.3-8.3)
--- NOTE | 2017-07-22 06:28 | PROGRESS NOTE ---
DATE: 07/22/2017 SUBJECTIVE: Patient transported from [facility] ICU to [facility]. No major issues reported by the nursing staff. She has been a little bit agitated. She is off pressors. OBJECTIVE: Vital Signs: Patient's current temperature is 98.2 degrees, most recent pulse 115, most recent blood pressure 158/100, O2 saturation 99% on BiPAP. HEENT: Normocephalic, atraumatic. Pupils equal, round, react to light. Mucous membranes moist. Oropharynx benign. BiPAP machine in place. Neck: Supple. Trachea midline. Cardiovascular: Regular rate and rhythm. Some mild tachycardia. Lungs: Some coarse sounds noted and rhonchi noted. Abdomen: Soft, nontender, nondistended. Extremities: Essentially unchanged from last night. Her right leg is slightly cooler than her left but does not appear to be acutely threatened. They could not find signals in the right lower extremity but again, she does have a slightly delayed capillary refill, but again, this appears to not be any different from last night. Laboratory: ABG reviewed. ASSESSMENT AND PLAN: A 62-year-old, female with cool right lower extremity. 1. Cool right lower extremity. At this time, this seems to be more of a chronic problem. Again, it is difficult to get a full history from the patient. She has been mildly altered but I suspect the fact that she has been on Pletal in the past means that she has probably had some chronic long-standing problems. CTA of her lower extremity shows that she does have perfusion, although it is likely not in any major named vessel to find easily on exam. I suspect once she is resuscitated and stays off her Levophed for a while, which she is right now, she could be considered for surgical intervention. I will discuss her further with Dr. Gilmore who will take over while I am away. 2. Respiratory distress. At this time, she is on BiPAP. Would defer to hospitalist and pulmonary. 3. Possible alcohol withdrawal. At this time, continue supportive measures. 4. Multiple medical comorbidities, currently being managed by the hospitalist service. cc: Abelardo Andrade MD
--- NOTE | 2017-07-22 07:29 | Diag Imaging Result Doc PS360 ---
EXAM: CHEST-PORTABLE HISTORY: dyspnea TECHNIQUE: Portable COMPARISON: 07/20/2017 FINDINGS: The lungs are well expanded. The heart is not enlarged. There are increased interstitial markings which may be due to mild vascular distention. This is slightly less pronounced than on the prior exam. No consolidation. No pleural effusions identified. There has been prior surgery to the lower neck. IMPRESSION: Mild interval improvement. Electronically signed by Issac Ron 07/22/2017 7:26 AM
[2017-07-22] MEDS: MUCOMYST 20% XX SCH ×2 (07:52→23:57)
[2017-07-22] MEDS ORDERED: LASIX IV ONE ×2 (07:53→18:00)
[2017-07-22] MEDS: NICODERM PATCH TD SCH (08:16)
[2017-07-22 08:49] LABS: HEMATOCRIT 31.2 % (37.0-47.0); HEMOGLOBIN 10.8 g/dL (12.0-16.0); MCH 32.1 PG (27-31); MCHC 34.6 g/dL (33-37); MCV 92.9 FL (81-99); MPV 9.9 FL (7.4-10.4); RBC 3.36 XMIL (4.2-5.4)
--- NOTE | 2017-07-22 08:53 | CONSULTATION ---
DATE OF CONSULTATION: 07/22/2017 REFERRING PHYSICIAN: Austin Casey MD CHIEF COMPLAINT: Shortness of breath. HISTORY OF PRESENT ILLNESS: This 62-year-old female with a past medical history of chronic obstructive pulmonary disease and hypertension, that presented to the hospital with complaints of shortness of breath. Her symptoms have been present for a couple weeks and are progressively worse. The patient is altered and unable to provide a detailed history. She has been admitted for evaluation of her acute respiratory failure, pneumonia, chronic obstructive pulmonary disease exacerbation, as well as cool lower extremity with decreased pulses. REVIEW OF SYSTEMS: Unable to obtain. PAST MEDICAL HISTORY: Chronic obstructive pulmonary disease and hypertension. PAST SURGICAL HISTORY: Back and neck surgery. FAMILY HISTORY: Noncontributory. ALLERGIES: Ampicillin, aspirin, estrogen, meperidine, penicillin, and tetracycline. SOCIAL HISTORY: The patient lives at home with her family. Has a history of smoking 3 packs per day, but current amount is unknown. Denies alcohol or illicit drug use. PHYSICAL EXAMINATION: Vital Signs: Blood pressure 138/72, heart rate 95, respiratory rate 24, temperature 98.2, oxygen saturation 95%. General: Awake, altered, no acute distress noted. HEENT: Normocephalic, atraumatic. Pupils equal, round, and reactive to light. Cardiovascular: S1-S2 present. Chest: Reduced entry. Abdomen: Soft. Bowel sounds heard in all quadrants. Extremities: Right leg cooler than left, with diminished pulses. Neurological : Altered. LABS/INVESTIGATIONS: Sodium 138, potassium 3.9, chloride 101, CO2 25, anion gap 12. BUN 8, creatinine 0.4. Glucose 124. Blood gas reveals a pH 7.31, pCO2 of 58, pO2 138 , HCO3 26.3, base excess 1.7. Saturated oxygen 100. Chest x-ray performed on 07/22/2017 shows increased interstitial markings which may be due to mild vascular distention. No pleural effusions or consolidations identified. ASSESSMENT AND PLAN: This is a 62-year-old female with a past medical history of chronic obstructive pulmonary disease and hypertension. Was admitted to the hospital for evaluation of a cool right lower extremity with diminished pulses. CTA shows perfusion. Surgery is following. Also respiratory distress with respiratory failure. CHF and possible pneumonia. Shock is better and we stopped pressors. Possibility of DT's. Currently using BiPAP. Also antibiotics for suspected pneumonia. Steroids and GI prophylaxis. Further recommendations pending diagnostic studies. Thank you for the courtesy of this consult. cc: Alexis Limon MD MTDD
[2017-07-22 09:41] LABS: ALLEN TEST YES; BE 5.4 mmoll (-3.0-3.0); BLOOD TYPE ARTERIAL; DRAW SITE R RADIAL; O2(CT) 16.8 mL/dL (15.0-23.0); PO2(98.6) 108 mmHg (60-100); SAMPLE BLOOD; SAO2 99.3 % (95.0-100.0); THB 12.2 g/dL (11.5-17.4); pH(98.6) 7.35 (7.35-7.45)
[2017-07-22 09:42] LABS: MODALITY BI PAP
[2017-07-22 09:43] LABS: PCO2(98.6) 59 mmHg (35-45)
--- NOTE | 2017-07-22 09:51 | PROGRESS NOTE ---
DATE: 07/22/2017 SUBJECTIVE: Ms. Ring is a 62-year-old. She was admitted on 07/20, I believe to [facility]. She presented, as I understand with shortness of breath and had been experiencing shortness of breath for a couple weeks. A 62-year-old family with family in [facility]. Presented with complaints of shortness of breath. Had been present for several weeks and worsened. Chest x- ray showed possibility of interstitial fibrosis and pneumonitis could not be excluded. Was admitted. She appeared to have chronic obstructive pulmonary disease exacerbation, hypertension, and questionable bilateral pneumonia. She was noted to have poor pulse in her right lower extremity. Concerned about poor circulation. They did give her some potassium and felt she needed to come over here especially for evaluation of her right lower extremity. I saw her the morning of 07/22/2017. She was sitting up short of breath and on BiPAP. She has remained afebrile. Temperature 97 degrees, pulse 115, respirations 22, blood pressure 133/81. OBJECTIVE: HEENT: Pupils are equal and round. Lungs: Clear in all lung siu. Cardiovascular: Regular rhythm and rate without murmur or S3. Abdomen: Soft. Skin: Warm and dry. URINE OUTPUT: Is over about 3400 mL. LAB: White count 5070, hematocrit 31, platelet count 384,000. Sodium 138, potassium 3.9, chloride 101, bicarb 25. BUN 8, creatinine 0.48. Calcium 7.9. ASSESSMENT AND PLAN: Chronic obstructive pulmonary disease exacerbation. Continue bronchodilators. Continue BiPAP at night. She is becoming more agitated and tachycardic. There was concern about alcohol withdrawal, possibly delirium tremens developing. We will treat withdrawals with some Ativan, being careful not to suppress respiratory drive, but I am not sure if that is going to be possible so will watch and see how we do. I will try some phenobarbital in addition to the Ativan. Continue antibiotics. Dr. Limon is following. She is on vancomycin and Levaquin. cc: Sree Harper MD
--- NOTE | 2017-07-22 10:47 | ECHO REPORT ---
ORDER DATE: 07/21/2017 INDICATION: Respiratory distress, shortness of breath, alcohol abuse. FINDINGS: 1. The right atrium appears normal in size at 3.3 cm. 2. Mild tricuspid regurgitation. RV systolic pressure 47. 3. Normal RV size and systolic function. 4. Trace pulmonic insufficiency. 5. Normal left atrial size at 2.8 cm. 6. No mitral valve prolapse. Trace mitral regurgitation. 7. Normal LV size, end-diastolic dimension of 4.2. Normal wall thicknesses with posterior and interventricular septal wall thickness of 0.8 cm each. Normal LV systolic function. Estimated EF of 65%. Definity echo contrast was used to delineate the endocardial borders. There is no obvious segmental wall motion abnormalities. 8. Aortic valve opens well. No evidence of stenosis or insufficiency. 9. Aorta appears normal in visualized segments. 10. No pericardial effusion seen. cc: MD Austin Moe MD
[2017-07-22] MEDS: PHENOBARBITAL IV PRN ×2 (12:31→20:44)
[2017-07-22] MEDS: LEVAQUIN 500 MG/D5W 500 MG/100 ML IVPB IV SCH (12:34)
[2017-07-22] MEDS: PROTONIX IV SCH (12:34)
[2017-07-22] MEDS: LOVENOX SUBQ SCH (12:37)
[2017-07-22] MEDS ORDERED: SOLU-MEDROL IV SCH (13:00)
[2017-07-22] MEDS: M V I IV SCH ×6 (14:39)
[2017-07-22] MEDS: POTASSIUM CHLORIDE IV SCH ×6 (14:39)
[2017-07-22] MEDS: THIAMINE IV SCH ×6 (14:39)
[2017-07-22] MEDS: [UNRECOGNIZED DRUG - OTHER] IV SCH ×6 (14:39)
[2017-07-22] MEDS: FOLIC ACID IV SCH ×6 (14:39)
[2017-07-22] MEDS: VANCOMYCIN 1 GM/NS 1 GM/250 ML IVPB IV SCH (21:14)
[2017-07-23] MEDS: ATIVAN IV PRN ×6 (02:33→21:51)
[2017-07-23] MEDS: DUONEB (A & A) INH SCH ×6 (02:47→22:54)
[2017-07-23] MEDS: HALDOL IV PRN ×2 (03:36)
[2017-07-23] MEDS: PHENOBARBITAL IV PRN ×2 (03:37→12:42)
[2017-07-23] MEDS: SOLU-MEDROL IV SCH ×3 (04:45→21:17)
[2017-07-23 04:47] LABS: ALLEN TEST YES; BE 15.6 mmoll (-3.0-3.0); BLOOD TYPE ARTERIAL; DRAW SITE R RADIAL; METHB 1.2 % (0.0-1.5); O2(CT) 15.9 mL/dL (15.0-23.0); PO2(98.6) 112 mmHg (60-100); SAMPLE BLOOD; SAO2 99.1 % (95.0-100.0); THB 11.6 g/dL (11.5-17.4)
[2017-07-23 04:48] LABS: MODALITY BI PAP; PCO2(98.6) 70 mmHg (35-45)
[2017-07-23 05:08] LABS: HEMATOCRIT 31.7 % (37.0-47.0); HEMOGLOBIN 10.8 g/dL (12.0-16.0); MCH 33.4 PG (27-31); MCHC 34.1 g/dL (33-37); MCV 98.1 FL (81-99); MPV 9.6 FL (7.4-10.4); RBC 3.23 XMIL (4.2-5.4)
[2017-07-23 05:37] LABS: AGAP 14; ALBUMIN 2.7 g/dL (3.5-5.0); ALKALINE PHOSPHATASE 95 U/L (32-104); BUN 13 mg/dL (8-22); CALCIUM 8.3 mg/dL (8.8-10.2); CHLORIDE 96 mmol/L (98-107); COSMO 291; GOT 13 U/L (10-30); GPT 11 U/L (10-36); MAGNESIUM 2.6 mg/dL (1.5-2.7); POTASSIUM 3.3 mmol/L (3.5-5.1); SODIUM 145 mmol/L (136-145); TCO2 35 mmol/L (25-35); TOTAL BILIRUBIN 0.23 mg/dL (0.20-1.00); TOTAL PROTEIN 5.6 g/dL (6.3-8.3)
--- NOTE | 2017-07-23 07:11 | Diag Imaging Result Doc PS360 ---
EXAM: CHEST-PORTABLE HISTORY: dyspnea TECHNIQUE: AP portable at 0500 COMMENT: There is a small area of vague opacity adjacent to the left hemidiaphragm and cardiac apex which is worse than on 07/22/2017. Otherwise, there has been no significant change. IMPRESSION: Questionable pneumonia left lower lobe. Electronically signed by Valdemar Wade 07/23/2017 7:09 AM
[2017-07-23] MEDS: MUCOMYST 20% XX SCH ×3 (07:47→22:54)
--- NOTE | 2017-07-23 07:59 | PROGRESS NOTE ---
DATE: 07/23/2017 Ms. Ring is lying back on her back and still BiPAP. Air exchange seems to be improved although her CO2 went up. Her PO2 is stable at 112. This is on BiPAP 16/8, FiO2 35%. EXAM: She was sleeping. She does respond to pain and voice. She is requiring restraints. Temp 96.7 degrees, pulse 100, respirations 22, blood pressure 108/70.HEENT: Pupils are equal, round. CVP less than 6 cm. Lungs: Clear in all lung siu. Cardiovascular: Regular rhythm and rate without murmur or S3. Abdomen: Soft. Skin: Is warm and dry. Urine output 5 L. LAB: White count 5160, hematocrit 31, platelet count 427,000. Sodium 145, potassium 3.3, chloride 96, BUN 13, creatinine 0.6. Magnesium was 2.6. We will supplement with some potassium. Chest x-ray, note this morning questionable pneumonia left lower lobe. ASSESSMENT AND PLAN: 1. Chronic obstructive pulmonary disease exacerbation. Continue bronchodilators, BiPAP. Question pneumonia on the left side. On vancomycin and on Levaquin. Continue that regimen for now. 2. Suspect alcohol withdrawal. Using phenobarbital and Ativan. Requiring four-point restraint. 3. Cool right lower extremity. Seems to be more of a chronic problem. Apparently she has had some bypass arterial work. She is on Pletal. CTA of the lower extremity shows that she does have a perfusion although it is likely not through a major named vessel. Try and keep her off her pressors. Will continue to assess whether she needs any surgical intervention. cc: Sree Harper MD
[2017-07-23] MEDS: NS 1,000 ML IV SCH ×2 (08:18→19:41)
[2017-07-23] MEDS: POTASSIUM CHLORIDE 20 MEQ/SWI 20 MEQ/100 ML IVPB IV SCH ×2 (08:18→10:09)
[2017-07-23] MEDS: NICODERM PATCH TD SCH (09:04)
[2017-07-23] MEDS: SODIUM CHLORIDE 0.9% INJ SCH (12:43)
[2017-07-23] MEDS: LOVENOX SUBQ SCH (12:48)
[2017-07-23] MEDS: LEVAQUIN 500 MG/D5W 500 MG/100 ML IVPB IV SCH (12:48)
[2017-07-23] MEDS: PROTONIX IV SCH (12:48)
[2017-07-23] MEDS: POTASSIUM CHLORIDE IV SCH ×6 (14:53)
[2017-07-23] MEDS: THIAMINE IV SCH ×6 (14:53)
[2017-07-23] MEDS: [UNRECOGNIZED DRUG - OTHER] IV SCH ×6 (14:53)
[2017-07-23] MEDS: FOLIC ACID IV SCH ×6 (14:53)
[2017-07-23] MEDS: M V I IV SCH ×6 (14:53)
[2017-07-23] MEDS: MORPHINE IV PRN ×2 (15:22→23:11)
[2017-07-23] MEDS: VANCOMYCIN 1 GM/NS 1 GM/250 ML IVPB IV SCH (21:13)
[2017-07-24] MEDS: DUONEB (A & A) INH SCH ×6 (02:57→23:10)
[2017-07-24] MEDS: SOLU-MEDROL IV SCH ×3 (05:24→20:41)
[2017-07-24] MEDS: NS 1,000 ML IV SCH ×2 (07:35→20:41)
[2017-07-24] MEDS: MUCOMYST 20% XX SCH ×2 (07:53→19:35)
[2017-07-24] MEDS: NICODERM PATCH TD SCH (09:00)
--- NOTE | 2017-07-24 09:03 | PROGRESS NOTE ---
DATE: 07/24/2017 SUBJECTIVE: She is on BiPAP, appeared to be breathing comfortably. She did not respond to exam or to touch. She is in 4-point restraint. OBJECTIVE: Vital signs: Temp 97.3, pulse 111, respirations 24, blood pressure 150/76. Blood pressure range has been 108 to 150 over 60 to 80. Lungs: Clear anterolateral. No prolonged expiratory phase. Cardiovascular: Regular rhythm and rate, no murmur or S3. Abdomen: Soft. Skin: Warm and dry. Urine output 3300 mL. LABORATORY DATA: Lab reviewed from yesterday: Hematocrit stable at 31, white count was 5160. Chemistries from today: Sodium 145, potassium 3.3, chloride 96, BUN 13, creatinine 0.6. Magnesium 2.6. Albumin 2.7. IMAGING: Chest x-ray from yesterday showed questionable pneumonia, left lower lobe. Will repeat another chest x-ray today. ASSESSMENT AND PLAN: 1. Chronic obstructive pulmonary disease exacerbation with CO2 retention on BiPAP, doing better. Questionable pneumonia, suspect pneumonia, left lower lobe, on vancomycin and Levaquin. Will continue these antibiotics and continue bronchodilators. 2. Suspect alcohol withdrawal, delirium tremens. Continue Ativan and phenobarb. She seems to be doing better from that standpoint. She still requires restraints. 3. Right lower extremity was cool. It now has good pulses. Both feet are warm. I do not see any significant arterial insufficiency at this point. 4. Blood pressures are doing well. REVIEW OF HER CURRENT MEDICATION: She is on nicotine patch. She is currently on vancomycin and Levaquin. We have her on methylprednisolone 80 mg IV q.8 h. I think we can cut that down to 40 mg IV q.8 h. We have her on Lovenox prophylactically for DVT. cc: Sree Harper MD
[2017-07-24 09:21] LABS: ALLEN TEST NO; BE 14.6 mmoll (-3.0-3.0); BLOOD TYPE ARTERIAL; DRAW SITE R BRACHIAL; METHB 1.1 % (0.0-1.5); O2(CT) 16.8 mL/dL (15.0-23.0); PO2(98.6) 113 mmHg (60-100); SAMPLE BLOOD; SAO2 99.5 % (95.0-100.0); THB 12.2 g/dL (11.5-17.4); pH(98.6) 7.44 (7.35-7.45)
[2017-07-24 09:22] LABS: MODALITY BI PAP; PCO2(98.6) 61 mmHg (35-45)
[2017-07-24] MEDS: ATIVAN IV PRN (10:53)
[2017-07-24] MEDS: LEVAQUIN 500 MG/D5W 500 MG/100 ML IVPB IV SCH (13:58)
[2017-07-24] MEDS: PROTONIX IV SCH (13:58)
[2017-07-24] MEDS: LOVENOX SUBQ SCH (13:58)
[2017-07-24] MEDS: SODIUM CHLORIDE 0.9% INJ SCH (13:58)
[2017-07-24] MEDS: PHENOBARBITAL IV PRN (14:20)
[2017-07-24] MEDS: FOLIC ACID IV SCH ×6 (14:34)
[2017-07-24] MEDS: M V I IV SCH ×6 (14:34)
[2017-07-24] MEDS: THIAMINE IV SCH ×6 (14:34)
[2017-07-24] MEDS: [UNRECOGNIZED DRUG - OTHER] IV SCH ×6 (14:34)
[2017-07-24] MEDS: POTASSIUM CHLORIDE IV SCH ×6 (14:34)
[2017-07-24 18:33] LABS: SRATE 10 BPM
[2017-07-24] MEDS: MORPHINE IV PRN (20:44)
[2017-07-24] MEDS: VANCOMYCIN 1,500 MG in NS 250 ML IV SCH (21:45)
[2017-07-25] MEDS: ATIVAN IV PRN ×3 (01:24→20:42)
[2017-07-25] MEDS: DUONEB (A & A) INH SCH ×6 (03:10→23:32)
[2017-07-25 04:31] LABS: MANUAL DIFF NEEDED? NO
[2017-07-25 04:34] LABS: BASO% 0.3 % (0.0-0.8); EOS# 0.01 X1000 (0.0-0.7); EOS% 0.1 % (0.0-10.0); HEMATOCRIT 36.8 % (37.0-47.0); HEMOGLOBIN 12.1 g/dL (12.0-16.0); IMM GRAN# 0.21 X1000 (0.0-0.04); IMM GRAN% 2.8 % (0.0-0.5); LYMPH# 0.98 X1000 (1.2-3.4); MCH 31.3 PG (27-31); MCHC 32.9 g/dL (33-37); MCV 95.1 FL (81-99); MONO# 0.71 X1000 (0.11-0.59); MONO% 9.4 % (1.7-9.3); MPV 9.3 FL (7.4-10.4); NEUT% 74.4 % (42.2-75.2); PLT 466 X1000 (130-400); RBC 3.87 XMIL (4.2-5.4)
[2017-07-25 05:04] LABS: ALLEN TEST YES; BE 12.9 mmoll (-3.0-3.0); BLOOD TYPE ARTERIAL; DRAW SITE R RADIAL; METHB 0.9 % (0.0-1.5); O2(CT) 17.2 mL/dL (15.0-23.0); PCO2(98.6) 50 mmHg (35-45); PO2(98.6) 166 mmHg (60-100); SAMPLE BLOOD; SAO2 99.7 % (95.0-100.0); THB 12.3 g/dL (11.5-17.4); pH(98.6) 7.49 (7.35-7.45)
[2017-07-25 05:05] LABS: MODALITY BI PAP
[2017-07-25 05:17] LABS: AGAP 7; BUN 10 mg/dL (8-22); CALCIUM 8.5 mg/dL (8.8-10.2); CHLORIDE 97 mmol/L (98-107); COSMO 279; POTASSIUM 3.8 mmol/L (3.5-5.1); SODIUM 140 mmol/L (136-145); TCO2 36 mmol/L (25-35)
[2017-07-25] MEDS: SOLU-MEDROL IV SCH ×3 (05:36→20:42)
[2017-07-25] MEDS: MORPHINE IV PRN (06:05)
[2017-07-25] MEDS: NS 1,000 ML IV SCH ×2 (07:40→18:25)
--- NOTE | 2017-07-25 07:47 | Diag Imaging Result Doc PS360 ---
EXAM: CHEST-1 VIEW INDICATION: SOB TECHNIQUE: One view COMPARISON: 07/23/2017 FINDINGS: The opacity at the left lung base to on the previous study has essentially resolved. There is no new consolidation. Cardiac silhouette is stable. IMPRESSION: Essential resolution of the left basilar consolidation. Electronically signed by Cliff Santiago 07/25/2017 7:45 AM
[2017-07-25] MEDS: MUCOMYST 20% XX SCH ×2 (08:06→19:27)
[2017-07-25] MEDS: NICODERM PATCH TD SCH (08:27)
[2017-07-25] MEDS: PHENOBARBITAL IV PRN ×3 (10:04→23:46)
[2017-07-25] MEDS: SODIUM CHLORIDE 0.9% INJ SCH (13:44)
[2017-07-25] MEDS: LOVENOX SUBQ SCH (13:44)
[2017-07-25] MEDS: PROTONIX IV SCH (13:44)
[2017-07-25] MEDS: LEVAQUIN 500 MG/D5W 500 MG/100 ML IVPB IV SCH (13:44)
--- NOTE | 2017-07-25 14:02 | PROGRESS NOTE ---
DATE: 07/25/2017 SUBJECTIVE: She is on 4-point restraints. She is awake, though, is oriented to person, think she knows she is in the hospital but otherwise very confused. OBJECTIVE: Vital signs: Temp 97.0, pulse 94, respirations 20, blood pressure 142/68. Lungs: Clear in all lung siu. Cardiovascular: Regular rhythm and rate without murmur or S3. Abdomen: Soft. Skin: Warm and dry. Urine output is 4700 mL. LABORATORY DATA: Reviewed from the : Hematocrit stable at 38. Sodium 140, potassium 3.8, chloride 97, BUN 10, creatinine 0.4. Her blood gases this morning: pH 7.49, pCO2 is 50, pO2 is 166, O2 sat 99% on 35% FiO2. IMAGING: Chest x-ray from today: Essential resolution of left basilar consolidation. ASSESSMENT AND PLAN: 1. Left basilar consolidation. Treating for pneumonia, COPD exacerbation, CO2 retention. 2. Alcohol withdrawal, delirium tremens, starting to show some improvement, waking up a little bit. Continue benzodiazepines as needed. 3. Right lower extremity was cool on presentation, appears to be warm and circulation improved in both lower extremities. Blood pressure looks better. Hopefully, she can wake up and start helping with physical therapy and p.o. intake. She is on methylprednisolone IV q.8 h. I think I can cut that back to 20 mg IV q.12 h. Continue nicotine patch. Continue 4-point restraint as necessary. We will discontinue the morphine, continue to use phenobarb, and continue to use lorazepam as needed. cc: Sree Harper MD
[2017-07-25] MEDS: FOLIC ACID IV SCH ×6 (15:08)
[2017-07-25] MEDS: POTASSIUM CHLORIDE IV SCH ×6 (15:08)
[2017-07-25] MEDS: M V I IV SCH ×6 (15:08)
[2017-07-25] MEDS: [UNRECOGNIZED DRUG - OTHER] IV SCH ×6 (15:08)
[2017-07-25] MEDS: THIAMINE IV SCH ×6 (15:08)
[2017-07-25] MEDS: VANCOMYCIN 1,500 MG in NS 250 ML IV SCH (16:58)
[2017-07-26] MEDS: DUONEB (A & A) INH SCH ×6 (03:15→23:27)
[2017-07-26] MEDS: NS 1,000 ML IV SCH ×2 (04:47→17:55)
[2017-07-26] MEDS: SOLU-MEDROL IV SCH ×3 (04:47→20:19)
[2017-07-26 04:53] LABS: ALLEN TEST YES; BE 11.9 mmoll (-3.0-3.0); BLOOD TYPE ARTERIAL; DRAW SITE R RADIAL; METHB 1.4 % (0.0-1.5); O2(CT) 17.5 mL/dL (15.0-23.0); PCO2(98.6) 50 mmHg (35-45); PO2(98.6) 167 mmHg (60-100); SAMPLE BLOOD; SAO2 99.3 % (95.0-100.0); THB 12.6 g/dL (11.5-17.4); pH(98.6) 7.48 (7.35-7.45)
[2017-07-26 04:54] LABS: MODALITY BI PAP
[2017-07-26 05:55] LABS: MANUAL DIFF NEEDED? NO
[2017-07-26 06:01] LABS: BASO% 0.1 % (0.0-0.8); EOS# 0.01 X1000 (0.0-0.7); EOS% 0.1 % (0.0-10.0); HEMATOCRIT 37.4 % (37.0-47.0); HEMOGLOBIN 12.2 g/dL (12.0-16.0); IMM GRAN# 0.19 X1000 (0.0-0.04); IMM GRAN% 2.4 % (0.0-0.5); LYMPH# 0.93 X1000 (1.2-3.4); LYMPH% 11.8 % (20.5-51.1); MCH 30.8 PG (27-31); MCHC 32.6 g/dL (33-37); MCV 94.4 FL (81-99); MONO# 0.56 X1000 (0.11-0.59); MONO% 7.1 % (1.7-9.3); MPV 9.6 FL (7.4-10.4); NEUT% 78.5 % (42.2-75.2); PLT 456 X1000 (130-400); RBC 3.96 XMIL (4.2-5.4)
[2017-07-26 06:22] LABS: AGAP 11; BUN 8 mg/dL (8-22); CALCIUM 8.5 mg/dL (8.8-10.2); CHLORIDE 99 mmol/L (98-107); COSMO 281; SODIUM 142 mmol/L (136-145); TCO2 32 mmol/L (25-35)
[2017-07-26] MEDS: MUCOMYST 20% XX SCH ×2 (07:40→19:11)
--- NOTE | 2017-07-26 07:58 | Diag Imaging Result Doc PS360 ---
EXAM: CHEST-1 VIEW INDICATION: SOB TECHNIQUE: One view COMPARISON: 07/25/2017 FINDINGS: There is a fine reticulonodular opacity throughout both lungs. It appears more apparent due to the exposure on the current study. No new consolidations are identified. Cardiac silhouette is stable. IMPRESSION: Fine reticulonodular opacity throughout both lungs that is similar to previous studies. Electronically signed by Cliff Santiago 07/26/2017 7:56 AM
[2017-07-26] MEDS: NICODERM PATCH TD SCH (08:59)
[2017-07-26] MEDS: VANCOMYCIN 1,500 MG in NS 250 ML IV SCH (08:59)
--- NOTE | 2017-07-26 10:15 | PROGRESS NOTE ---
DATE: 07/26/2017 SUBJECTIVE: Ms. Ring is awake and alert. She is asking for some food. Still in 4-point restraints. She is oriented to person and place and answering questions. OBJECTIVE: Vital signs: Temperature 98.9 degrees, pulse 100, respirations 25, blood pressure 165/91. Urine output was over almost 6 L. HEENT: Pupils are equal, round. Lungs: Clear in all lung siu. Cardiovascular: Regular rate without murmur or S3. Abdomen: Soft. Skin: Warm and dry. LABORATORY STUDIES: White count 7880, hematocrit 37, platelet count 456,000. Chemistries: Sodium 142, potassium 4.0, chloride 99, BUN 8, creatinine 0.48. Chest x-ray this morning: Fine reticular nodular opacity throughout both lungs. This is similar to previous studies. No consolidation. ASSESSMENT AND PLAN: 1. Left basilar consolidation which looks like it is resolved. 2. Underlying chronic obstructive pulmonary disease. Carbon dioxide retention. Breathing status and gas exchange improved. 3. Alcohol withdrawal, delirium tremens which are improving. We will advance her diet. See if we can keep her out of restraints. Maybe can discontinue her Ramirez catheter tomorrow. 4. Right lower extremity which felt cool on presentation. Lower extremities with good capillary refill. Seem to have adequate blood flow. Review of lab see any change. cc: Sree Harper MD
[2017-07-26] MEDS: LOVENOX SUBQ SCH (12:02)
[2017-07-26] MEDS: SODIUM CHLORIDE 0.9% INJ SCH (12:02)
[2017-07-26] MEDS: PROTONIX IV SCH (12:02)
[2017-07-26] MEDS: LEVAQUIN 500 MG/D5W 500 MG/100 ML IVPB IV SCH (12:02)
[2017-07-26] MEDS ORDERED: LOMOTIL PO PRN (13:50)
[2017-07-26] MEDS: LOMOTIL PO PRN (14:13)
[2017-07-26] MEDS: POTASSIUM CHLORIDE IV SCH ×6 (14:14)
[2017-07-26] MEDS: THIAMINE IV SCH ×6 (14:14)
[2017-07-26] MEDS: [UNRECOGNIZED DRUG - OTHER] IV SCH ×6 (14:14)
[2017-07-26] MEDS: M V I IV SCH ×6 (14:14)
[2017-07-26] MEDS: FOLIC ACID IV SCH ×6 (14:14)
[2017-07-26] MEDS: TOPROL XL PO SCH (17:55)
[2017-07-26] MEDS: EFFEXOR XR PO SCH (17:55)
[2017-07-26] MEDS: PLAVIX PO SCH (17:55)
[2017-07-26] MEDS ORDERED: NITROGLYCERIN TOP ONE (20:05)
[2017-07-26] MEDS: PLETAL PO SCH (20:19)
[2017-07-26] MEDS: PHENOBARBITAL IV PRN (22:32)
[2017-07-27] MEDS: DUONEB (A & A) INH SCH ×6 (03:35→23:05)
[2017-07-27 04:28] LABS: ALLEN TEST YES; BE 8.9 mmoll (-3.0-3.0); BLOOD TYPE ARTERIAL; DRAW SITE R RADIAL; O2(CT) 17.4 mL/dL (15.0-23.0); PCO2(98.6) 51 mmHg (35-45); PO2(98.6) 103 mmHg (60-100); SAMPLE BLOOD; SAO2 99.1 % (95.0-100.0); THB 12.7 g/dL (11.5-17.4); pH(98.6) 7.44 (7.35-7.45)
[2017-07-27 04:29] LABS: MODALITY BI PAP
[2017-07-27 04:35] LABS: BASO% 0.1 % (0.0-0.8); EOS# 0.02 X1000 (0.0-0.7); EOS% 0.3 % (0.0-10.0); HEMOGLOBIN 11.8 g/dL (12.0-16.0); IMM GRAN# 0.14 X1000 (0.0-0.04); IMM GRAN% 1.8 % (0.0-0.5); LYMPH# 0.47 X1000 (1.2-3.4); MANUAL DIFF NEEDED? YES; MCH 30.4 PG (27-31); MCHC 32.8 g/dL (33-37); MCV 92.8 FL (81-99); MONO# 0.33 X1000 (0.11-0.59); MONO% 4.2 % (1.7-9.3); MPV 9.5 FL (7.4-10.4); NEUT% 87.6 % (42.2-75.2); PLT 335 X1000 (130-400); RBC 3.88 XMIL (4.2-5.4)
[2017-07-27] MEDS ORDERED: BENADRYL IV ONE (04:40)
[2017-07-27] MEDS: VANCOMYCIN 1,500 MG in NS 250 ML IV SCH (04:54)
[2017-07-27] MEDS: LOMOTIL PO PRN ×3 (04:54→15:54)
[2017-07-27] MEDS: SOLU-MEDROL IV SCH ×3 (04:55→20:16)
[2017-07-27 05:09] LABS: AGAP 10; BUN 7 mg/dL (8-22); CALCIUM 8.5 mg/dL (8.8-10.2); CHLORIDE 97 mmol/L (98-107); COSMO 273; SODIUM 138 mmol/L (136-145); TCO2 31 mmol/L (25-35)
--- NOTE | 2017-07-27 06:45 | EKG Report ---
Test Performed on : 07/26/2017 7:54:02 PM Test Reason : CHEST PAIN Blood Pressure : / mmHG Vent. Rate : 092 BPM Atrial Rate : 092 BPM P-R Int : 162 ms QRS Dur : 078 ms QT Int : 374 ms P-R-T Axes : 074 054 065 degrees QTc Int : 462 ms Normal sinus rhythm. Normal ECG When compared with ECG of 20-JUL-2017 11:52, premature supraventricular complexes. are no longer present Confirmed by Leroy KUMAR, Sree San ([id number]) on 07/27/2017 5:00:12 PM
[2017-07-27 07:05] LABS: BANDS 2 % (0-1); HYPOCHROM 2+; LYMPHS 8 % (21-51); MONO 4 % (1-9)
--- NOTE | 2017-07-27 07:28 | Diag Imaging Result Doc PS360 ---
CHEST-1 VIEW - 07/27/2017 INDICATION: SOB TECHNIQUE: COMPARISON: 07/26/2017 FINDINGS: There is pulmonary vascular congestion. Heart size is borderline. No focal infiltrates, pneumothorax, or pleural effusion. IMPRESSION: No change from prior. Electronically signed by Raymond Do 07/27/2017 7:26 AM
[2017-07-27] MEDS ORDERED: ATIVAN IV PRN (08:53)
[2017-07-27] MEDS: PLAVIX PO SCH (09:12)
[2017-07-27] MEDS: NICODERM PATCH TD SCH (09:12)
[2017-07-27] MEDS: CRESTOR PO SCH (09:13)
[2017-07-27] MEDS: TOPROL XL PO SCH (09:13)
[2017-07-27] MEDS: PLETAL PO SCH ×2 (09:13→20:16)
[2017-07-27] MEDS: EFFEXOR XR PO SCH (09:13)
[2017-07-27] MEDS: MUCOMYST 20% XX SCH ×2 (09:20→19:14)
--- NOTE | 2017-07-27 09:31 | PROGRESS NOTE ---
DATE: 07/27/2017 HISTORY: She is more alert and oriented. She is on BiPAP and still requiring BiPAP especially at night. To review, she presented on 07/20/2017. She is out of state from [place]. She had shortness of breath for the past few weeks and it got worse on 07/20/2017. Family brought her to [facility] with shortness of breath and were concerned about her right foot which felt cold and poor blood flow. Blood pressure dropped. She had exacerbation of COPD with pneumonia. She was on some pressors so they sent her over here. We have used the BiPAP and have been able to avoid intubation. She started getting confused with hallucinations and suspect withdrawal. Suspect alcohol withdrawal and delirium tremens. This is resolving. She is better. Still requires restraints. PHYSICAL EXAMINATION: Vital Signs: Temperature 98.6 degrees, pulse 77, respirations 25, blood pressure 134/73. Lungs: Are clear anterolateral but she has decreased breath sounds at both bases. Cardiovascular Examination: Regular rhythm and rate without murmur or S3. Abdomen: Soft. Skin: Is warm and dry. Is and Os: Urine output is about 1500 mL. LAB: White count 7830, hematocrit 36, platelet count 335,000. Sodium 138, potassium 4, chloride 97, BUN 7, creatinine 0.5. Chest x-ray from this morning, no change from prior. There is pulmonary vascular congestion. Heart size is borderline. No focal infiltrates or pneumothorax. EKG from yesterday, she is in normal sinus rhythm, normal EKG. ASSESSMENT AND PLAN: 1. Left basilar consolidation that looks like it has resolved. 2. Underlying chronic obstructive pulmonary disease exacerbation, chronic obstructive pulmonary disease, CO2 retention, probably chronic. This has improved. 3. Alcohol withdrawal, delirium tremens which are improving. 4. Right lower extremity which felt cool is now warm and has good capillary refill. I do not see any symptomatic vascular insufficiency at this time. Continue present measures. We need to start getting her up and see if we get her helping her with her strength. Hopefully, we can move her to the floor soon. 5. We put her back on her home medications which were Pletal 100 mg twice a day. I think she was Effexor ER 150 mg daily. We are giving her thiamine 100 mg intravenous daily. I think we can stop the Levaquin and I think we can stop the vancomycin. cc: Sree Harper MD
[2017-07-27] MEDS: NS 1,000 ML IV SCH ×2 (09:58→20:15)
[2017-07-27] MEDS: LOVENOX SUBQ SCH (13:55)
[2017-07-27] MEDS: PROTONIX IV SCH (13:55)
[2017-07-27] MEDS: SODIUM CHLORIDE 0.9% INJ SCH (13:55)
[2017-07-27] MEDS: FOLIC ACID IV SCH ×6 (15:48)
[2017-07-27] MEDS: POTASSIUM CHLORIDE IV SCH ×6 (15:48)
[2017-07-27] MEDS: [UNRECOGNIZED DRUG - OTHER] IV SCH ×6 (15:48)
[2017-07-27] MEDS: M V I IV SCH ×6 (15:48)
[2017-07-27] MEDS: THIAMINE IV SCH ×6 (15:48)
[2017-07-27] MEDS: PHENOBARBITAL IV PRN (15:54)
[2017-07-28] MEDS: NS 1,000 ML IV SCH ×3 (00:43→10:03)
[2017-07-28] MEDS: DUONEB (A & A) INH SCH ×6 (02:30→23:29)
[2017-07-28 04:06] LABS: ALLEN TEST YES; BE 7.6 mmoll (-3.0-3.0); BLOOD TYPE ARTERIAL; DRAW SITE R RADIAL; METHB 1.2 % (0.0-1.5); O2(CT) 15.9 mL/dL (15.0-23.0); PCO2(98.6) 50 mmHg (35-45); PO2(98.6) 88 mmHg (60-100); SAMPLE BLOOD; SAO2 98.4 % (95.0-100.0); THB 11.7 g/dL (11.5-17.4); pH(98.6) 7.43 (7.35-7.45)
[2017-07-28 04:07] LABS: MODALITY BI PAP
[2017-07-28] MEDS: SOLU-MEDROL IV SCH ×2 (04:58→18:26)
[2017-07-28 05:12] LABS: MANUAL DIFF NEEDED? NO
[2017-07-28 05:20] LABS: EOS# 0.03 X1000 (0.0-0.7); EOS% 0.5 % (0.0-10.0); HEMATOCRIT 32.7 % (37.0-47.0); HEMOGLOBIN 10.6 g/dL (12.0-16.0); IMM GRAN# 0.08 X1000 (0.0-0.04); IMM GRAN% 1.4 % (0.0-0.5); LYMPH# 0.43 X1000 (1.2-3.4); LYMPH% 7.3 % (20.5-51.1); MCH 30.6 PG (27-31); MCHC 32.4 g/dL (33-37); MCV 94.5 FL (81-99); MONO# 0.35 X1000 (0.11-0.59); NEUT% 84.8 % (42.2-75.2); PLT 240 X1000 (130-400); RBC 3.46 XMIL (4.2-5.4)
[2017-07-28 05:31] LABS: AGAP 9; BUN 6 mg/dL (8-22); CHLORIDE 101 mmol/L (98-107); COSMO 278; POTASSIUM 3.4 mmol/L (3.5-5.1); SODIUM 141 mmol/L (136-145); TCO2 31 mmol/L (25-35)
[2017-07-28 05:56] LABS: FREE T4 0.91 ng/dL (0.93-1.70)
--- NOTE | 2017-07-28 06:09 | Diag Imaging Result Doc PS360 ---
EXAM: CHEST-1 VIEW HISTORY: SOB TECHNIQUE: Portable AP COMPARISON: 07/27/2017 FINDINGS: The lungs remain well expanded. The heart is not enlarged. Mild vascular distention. No consolidation or pleural effusions identified. There has been prior surgery to the lower neck. The overall appearance is similar to that of the prior study. IMPRESSION: Stable chest. Electronically signed by Issac Ron 07/28/2017 6:07 AM
[2017-07-28] MEDS: PLETAL PO SCH ×2 (08:32→22:47)
[2017-07-28] MEDS: CRESTOR PO SCH (08:32)
[2017-07-28] MEDS: EFFEXOR XR PO SCH (08:33)
[2017-07-28] MEDS: MUCOMYST 20% XX SCH ×2 (08:33→19:35)
[2017-07-28] MEDS: PLAVIX PO SCH (08:33)
[2017-07-28] MEDS: TOPROL XL PO SCH (08:33)
[2017-07-28] MEDS: NICODERM PATCH TD SCH (08:34)
[2017-07-28] MEDS: LOMOTIL PO PRN (10:02)
[2017-07-28] MEDS ORDERED: SOLU-MEDROL IV SCH (11:00)
--- NOTE | 2017-07-28 11:42 | PROGRESS NOTE ---
DATE: 07/28/2017 SUBJECTIVE: Today Ms. Ring refers to be doing a lot better. She said her breathing has significantly improved. She is not coughing. No fever, no chest pain. The patient however complains of frequent bowel movements, which according to her, is not anything new. She is known to have irritable bowel syndrome. OBJECTIVE: Vital signs: Blood pressure is 141/78, pulse is 92, respirations 20, temperature is 98.8 degrees. Patient is saturating 93-94% on the Ventimask. General: Ms. Ring is a 52-year- old female. She is in bed. She is not in any remarkable distress. HEENT: Mucosa is pink and moist. Anicteric. Acyanotic. Neck: Supple. Chest: Good air entry bilaterally. There are some distant and inspiratory dry Velcro crackles. Cardiovascular: Regular rate and rhythm. There are no murmurs, no rubs, no gallops. Abdomen: Soft, nontender. No scars, no hepatosplenomegaly. Extremities: No pedal edema. ASSOCIATE DATA SCIENTIST: Patient is awake and alert. Oriented x4. There is no focal neurological deficit. LABORATORY DATA: WBC is 5.88. Hemoglobin is 10.6, platelet count is 248,000. Chemistry is also reviewed and unremarkable except for potassium of 3.4. Patient's folate is 12. TSH is high. Free T4 is low consistent with primary hyperparathyroidism. ASSESSMENT: 1. Acute hypoxemic respiratory failure on presentation. The patient was initially started on BiPAP for adequate oxygenation and ventilation. Her ABG this morning is significantly improved on the BiPAP. Patient is currently on the Ventimask and saturating very well. We are going to move her from the ICU to regular floor with a Ventimask. 2. Chronic obstructive pulmonary disease exacerbation. This is significantly improved. Clinically patient does not have any more wheezing in the chest. She is on steroids which we will start tapering this down to 40 b.i.d. per day and tomorrow continue with the tapering. 3. Episode of delirium which was thought to be associated with alcohol withdrawal has significantly improved. 4. Severe peripheral vascular disease. Patient is on a cilostazol and clopidogrel and beta nadiya. We will continue with that. 5. Chronic recurrent diarrhea secondary to irritable bowel syndrome. We started the patient on Amitiza and also a probiotic. 6. Hypothyroidism. We will start the patient on Synthroid supplements. In general, I think Ms. Ring is improved. We are going to discontinue the restraints and the Ramirez catheter. We are going to move the patient from the ICU to regular floor. We will continue with physical therapy. Also continue with the current medications. Hopefully we might be able to discharge Ms. Ring within 2 days depending on the oxygen needs. cc: Dago Barajas MD
[2017-07-28] MEDS: LOVENOX SUBQ SCH (13:06)
[2017-07-28] MEDS: SODIUM CHLORIDE 0.9% INJ SCH (13:06)
[2017-07-28] MEDS: PROTONIX IV SCH (13:06)
--- NOTE | 2017-07-28 14:23 | VASCULAR LAB ---
PROCEDURE NAME: Arterial Bilateral Legs - 07/21/2017 REQUESTING PHYSICIAN: Dr. Austin Casey. FINANCIAL SERVICE PROFESSIONAL: Selina. INDICATION: Cold leg. FINDINGS: Segmental pressures as follow: Right brachial 123 and left 123; right proximal thigh 163 and left 136; right distal thigh 63 and left 139; right popliteal 43 and left 89; right dorsalis pedis 37 and left 89; right posterior tibial 42 and left 66; right toe with no flow and left 70; right KAI 0.34 and on the left 0.72; right TBI no flow and left 0.57. Waveform analysis: Waveforms to be blunted on the entirety of the right side. There appears to be waveforms noted to the left great toe. INTERPRETATION: Likely proximal disease, either internal iliac or proximal common femoral on the right side. There is suggestion of peripheral vascular disease on the left side, but not to the same severity as the right side. I would recommend correlating this with CT angiography. cc: MD Austin Og MD
[2017-07-28] MEDS: M V I IV SCH ×6 (14:41)
[2017-07-28] MEDS: [UNRECOGNIZED DRUG - OTHER] IV SCH ×6 (14:41)
[2017-07-28] MEDS: POTASSIUM CHLORIDE IV SCH ×6 (14:41)
[2017-07-28] MEDS: THIAMINE IV SCH ×6 (14:41)
[2017-07-28] MEDS: FOLIC ACID IV SCH ×6 (14:41)
[2017-07-28] MEDS: AMITIZA PO SCH (22:48)
[2017-07-28] MEDS: CULTURELLE PO SCH (22:48)
[2017-07-29] MEDS: DUONEB (A & A) INH SCH ×6 (03:37→23:35)
[2017-07-29] MEDS: SYNTHROID PO SCH ×2 (05:23→07:51)
[2017-07-29] MEDS: SOLU-MEDROL IV SCH ×3 (05:23→17:42)
[2017-07-29 06:32] LABS: BASO% 0.1 % (0.0-0.8); EOS# 0.02 X1000 (0.0-0.7); EOS% 0.2 % (0.0-10.0); HEMATOCRIT 35.1 % (37.0-47.0); HEMOGLOBIN 11.7 g/dL (12.0-16.0); IMM GRAN# 0.06 X1000 (0.0-0.04); IMM GRAN% 0.5 % (0.0-0.5); LYMPH% 4.2 % (20.5-51.1); MANUAL DIFF NEEDED? YES; MCH 30.9 PG (27-31); MCHC 33.3 g/dL (33-37); MCV 92.6 FL (81-99); MONO# 0.67 X1000 (0.11-0.59); MONO% 5.6 % (1.7-9.3); MPV 10.5 FL (7.4-10.4); NEUT% 89.4 % (42.2-75.2); PLT 219 X1000 (130-400); RBC 3.79 XMIL (4.2-5.4)
[2017-07-29 06:57] LABS: AGAP 11; BUN 5 mg/dL (8-22); CALCIUM 8.5 mg/dL (8.8-10.2); CHLORIDE 94 mmol/L (98-107); COSMO 265; POTASSIUM 3.2 mmol/L (3.5-5.1); SODIUM 134 mmol/L (136-145); TCO2 29 mmol/L (25-35)
[2017-07-29 07:28] LABS: EOS 1 % (1-10); LYMPHS 6 % (21-51); MONO 7 % (1-9)
[2017-07-29] MEDS: MUCOMYST 20% XX SCH (07:38)
[2017-07-29] MEDS ORDERED: ATIVAN IV PRN (07:56)
[2017-07-29] MEDS: PLETAL PO SCH ×2 (08:22→20:38)
[2017-07-29] MEDS: EFFEXOR XR PO SCH (08:22)
[2017-07-29] MEDS: TOPROL XL PO SCH (08:22)
[2017-07-29] MEDS: AMITIZA PO SCH ×2 (08:22→20:38)
[2017-07-29] MEDS: PLAVIX PO SCH (08:22)
[2017-07-29] MEDS: CRESTOR PO SCH (08:22)
[2017-07-29] MEDS: CULTURELLE PO SCH ×2 (08:22→20:38)
[2017-07-29] MEDS: NICODERM PATCH TD SCH (08:22)
[2017-07-29] MEDS: LOMOTIL PO PRN ×2 (08:29→13:31)
[2017-07-29] MEDS: SODIUM CHLORIDE 0.9% INJ SCH (13:31)
[2017-07-29] MEDS: PROTONIX IV SCH (13:31)
[2017-07-29] MEDS: LOVENOX SUBQ SCH (13:31)
[2017-07-29] MEDS: M V I IV SCH ×6 (15:45)
[2017-07-29] MEDS: THIAMINE IV SCH ×6 (15:45)
[2017-07-29] MEDS: POTASSIUM CHLORIDE IV SCH ×6 (15:45)
[2017-07-29] MEDS: [UNRECOGNIZED DRUG - OTHER] IV SCH ×6 (15:45)
[2017-07-29] MEDS: FOLIC ACID IV SCH ×6 (15:45)
[2017-07-29] MEDS ORDERED: IMODIUM PO ONE (16:13)
[2017-07-29] MEDS ORDERED: KLOR-CON PO ONE (16:14)
--- NOTE | 2017-07-29 17:19 | PROGRESS NOTE ---
DATE: 07/29/2017 SUBJECTIVE: Today, Ms. Ring refers to be doing a little better, but continues to have multiple bowel movements which is diarrhea. OBJECTIVELY: Vital signs: Blood pressure is 143/60, pulse of 85, respirations 20, temperature is 99.3 degrees. The patient's saturation is 94%. General: Ms. Ring is a 62-year-old, female. She is in bed. Does not seem to be in any remarkable distress. HEENT: Mucosa is pink and moist. Anicteric. Acyanotic. Neck: Supple. Chest: Good air entry bilateral. There are end-inspiratory Velcro crackles. Cardiovascular: Regular rate and rhythm. Abdomen: Soft, nontender. Bowel sounds are present. Extremities: No pedal edema. Central nervous system: The patient is awake and alert. There is no focal neurological deficit. LABORATORY DATA: WBC is 11.89, hemoglobin is 11.7, platelet count of 219,000. Chemistry is also reviewed. Sodium is 134, potassium is 3.2, chloride 94, bicarb is 29. ASSESSMENT: 1. Acute hypoxemic respiratory failure on presentation. The patient was on the BiPAP. She is now transitioned to a Ventimask. This afternoon she was actually on room air, saturating 94%. 2. Chronic obstructive pulmonary disease exacerbation. We will continue with the bronchodilation therapy and antibiotics. 3. Episode of delirium, which was thought to be associated with alcohol withdrawal, resolved. 4. History of severe peripheral vascular disease. The patient continues to be on cilostazol and clopidogrel. 5. Chronic recurrent diarrhea, secondary to irritable bowel syndrome. The patient was started on Amitiza and probiotics. She also referred that she normally gets some relief with Imodium, so we will restart her on that. The patient's stool was negative for Clostridium difficile. 6. Hypothyroidism. Started the patient on her Synthroid therapy. So, in general, I think Ms. Ring is clinically improving. Continues to be needing supplemental oxygen. We will continue with the antibiotics and steroid bronchodilation therapy, and will also continue addressing her bowel movement. cc: Dago Barajas MD
[2017-07-29] MEDS: IMODIUM PO PRN (20:44)
[2017-07-30] MEDS: DUONEB (A & A) INH SCH ×6 (04:01→23:03)
[2017-07-30] MEDS: SOLU-MEDROL IV SCH (05:53)
[2017-07-30] MEDS: IMODIUM PO PRN ×2 (05:53→20:41)
[2017-07-30] MEDS: SYNTHROID PO SCH ×2 (05:54→07:15)
[2017-07-30 06:23] LABS: BASO% 0.1 % (0.0-0.8); EOS# 0.08 X1000 (0.0-0.7); HEMATOCRIT 34.3 % (37.0-47.0); HEMOGLOBIN 11.4 g/dL (12.0-16.0); IMM GRAN# 0.02 X1000 (0.0-0.04); IMM GRAN% 0.3 % (0.0-0.5); LYMPH# 0.32 X1000 (1.2-3.4); LYMPH% 4.1 % (20.5-51.1); MANUAL DIFF NEEDED? YES; MCH 30.5 PG (27-31); MCHC 33.2 g/dL (33-37); MCV 91.7 FL (81-99); MONO# 0.51 X1000 (0.11-0.59); MONO% 6.6 % (1.7-9.3); MPV 10.7 FL (7.4-10.4); NEUT% 87.9 % (42.2-75.2); PLT 219 X1000 (130-400); RBC 3.74 XMIL (4.2-5.4)
[2017-07-30 07:00] LABS: AGAP 12; BUN 5 mg/dL (8-22); CALCIUM 8.7 mg/dL (8.8-10.2); CHLORIDE 96 mmol/L (98-107); COSMO 271; POTASSIUM 3.3 mmol/L (3.5-5.1); SODIUM 137 mmol/L (136-145); TCO2 29 mmol/L (25-35)
[2017-07-30 08:44] LABS: LYMPHS 2 % (21-51); MONO 6 % (1-9)
[2017-07-30] MEDS ORDERED: KLOR-CON PO ONE (08:45)
[2017-07-30] MEDS: CRESTOR PO SCH (08:50)
[2017-07-30] MEDS: EFFEXOR XR PO SCH (08:50)
[2017-07-30] MEDS: CULTURELLE PO SCH ×2 (08:50→20:38)
[2017-07-30] MEDS: AMITIZA PO SCH ×2 (08:50→20:42)
[2017-07-30] MEDS: PLAVIX PO SCH ×2 (08:50→09:50)
[2017-07-30] MEDS: TOPROL XL PO SCH (08:50)
[2017-07-30] MEDS: PLETAL PO SCH ×2 (08:50→20:38)
[2017-07-30] MEDS: NICODERM PATCH TD SCH ×3 (09:50→17:15)
--- NOTE | 2017-07-30 11:08 | PROGRESS NOTE ---
DATE: 07/30/2017 SUBJECTIVE: Today, Ms. Ring refers to be doing a lot better in terms of her breathing. However, she continues to have frequent bowel movement. According to her, she had about 23 since this morning. However, in the EMR only 2 is documented from today. Sixteen bowel movements was documented for yesterday. OBJECTIVE: Vital signs: Blood pressure is 165/58, pulse of 88, respirations 18 , temperature 98.2 degrees. General: Ms. Ring is a 62-year-old female. She is in bed. She did not seem to be in any distress. HEENT: Mucosa is pink and moist. Anicteric. Acyanotic. Neck: Supple. Chest: Good air entry bilaterally. Few bibasilar crepitations. Cardiovascular: Regular rate and rhythm. Abdomen: Soft. Bowel sounds are present. Extremities: No pedal edema. JOINERY PATTERNMAKER: Patient is awake, alert, and oriented. There is no focal neurological deficit. The patient is saturating 97% on the Ventimask. This morning when I actually saw her, she was in a nasal cannula. LABORATORY DATA: WBC is 7.77, hemoglobin is 11.4, platelet count of 219,000. ESR is 125, and CRP is 329.31. Chemistry: Sodium is 137, potassium is 3.3, chloride is 96, bicarb is 29. Renal function is normal. ASSESSMENT: 1. Acute hypoxemic respiratory failure on presentation, improved. Patient is now just on nasal cannula, seems to be doing fine. 2. Chronic obstructive pulmonary disease exacerbation. Patient is on a methylprednisolone 40 IV q.12. We are going to drop this to prednisone 40 once daily. Continue with the antibiotics and the bronchodilation therapy. 3. Episode of delirium in intensive care unit thought to be associated with alcohol withdrawal, resolved. 4. Chronic diarrhea. The patient refers that she was diagnosed in [place] for irritable bowel syndrome, and she was given medication. However, she is still not controlled. Her inflammatory markers are extremely high, and I am concerned if there is any underlying inflammatory bowel disease. Patient is extensively vasculopathic with a CT scan showing heavy atherosclerotic burden in her aorta and its branches, and I am not sure if she could also have an underlying ischemic colitis. We have consulted GI to evaluate the patient. However, patient refers that if she needs to have any procedure, she will prefer to go to go home, that is in [place], with her GI for that procedure. Will, however, wait for GI to see her and give us some recommendations. 5. Hypothyroidism. Will continue with the Synthroid therapy. For today, we are going to repeat patient's stool studies. We would change the steroids to oral. Continue with the antibiotics and the therapy for the COPD. Hopefully , we might be able to discharge the patient within 24-48 hours, pending further recommendations from GI and Pulmonary Medicine. cc: Dago Barajas MD MTDD
[2017-07-30] MEDS: LOMOTIL PO PRN (11:09)
[2017-07-30] MEDS: LOVENOX SUBQ SCH ×2 (13:00→15:17)
[2017-07-30] MEDS: PROTONIX IV SCH ×2 (13:00→15:15)
[2017-07-30] MEDS: THIAMINE IV SCH ×6 (15:12)
[2017-07-30] MEDS: FOLIC ACID IV SCH ×6 (15:12)
[2017-07-30] MEDS: [UNRECOGNIZED DRUG - OTHER] IV SCH ×6 (15:12)
[2017-07-30] MEDS: POTASSIUM CHLORIDE IV SCH ×6 (15:12)
[2017-07-30] MEDS: M V I IV SCH ×6 (15:12)
[2017-07-30] MEDS: SODIUM CHLORIDE 0.9% INJ SCH ×2 (15:15→15:16)
[2017-07-31] MEDS: DUONEB (A & A) INH SCH ×3 (02:34→11:00)
--- NOTE | 2017-07-31 05:03 | CONSULTATION ---
DATE OF CONSULTATION: 07/30/2017 REASON FOR REFERRAL: Diarrhea, questionable ischemic colitis. HISTORY OF PRESENT ILLNESS: This is a 62-year-old white female, who has been here since 07/20/2017. She was admitted for respiratory distress. She also had hypotension, and she was on Levophed for a period of time. She has significant peripheral vascular disease. She has been evaluated for that. She lives in [place], and was just here since May visiting family. She became sick and had to be admitted to the hospital. She does report a history of irritable bowel syndrome and has seen a offset lithographic press setter in [place]. She has had colonoscopies in the past, last reported was 3 years ago. She reports issues with diarrhea, at times severe, and she uses Imodium as needed. She has reported occasional bleeding, and relates that to hemorrhoids. PAST MEDICAL HISTORY: Peripheral vascular disease, COPD, hypertension. PAST SURGICAL HISTORY: Back and neck surgery. She has had a colonoscopy about 3 years ago. SOCIAL HISTORY: She is , a smoker. Occasional alcohol use. ALLERGIES: Ampicillin, aspirin, estrogens, Demerol, penicillin, and tetracycline all cause a rash. HOME MEDICATIONS: 1. Nitroglycerin 0.4 mg sublingual as needed. 2. Robinul 0.5 mg twice daily. 3. Metoprolol 50 mg daily. 4. Nexium 20 mg daily. 5. Pletal 100 mg twice daily. 6. Effexor 150 mg daily. 7. Plavix 75 mg daily. 8. Gabapentin 600 mg twice daily. 9. Cilostazol 100 mg twice daily. 10. Crestor 1 tablet daily. REVIEW OF SYSTEMS: Per HPI. PHYSICAL EXAMINATION: Vital Signs: Temperature 97.4 degrees, pulse 86, respirations 18, blood pressure 126/45. General: Patient is awake, alert, in no acute distress. She is oriented. HEENT: Normocephalic, atraumatic. Pupils equal, round, reactive to light. Sclerae nonicteric. She has a sore on her mouth and nose. Respiratory: Some decreased breath sounds. Cardiovascular: Regular rate and rhythm. Abdomen: Soft. Mild tenderness with palpation. Extremities: No lower extremity edema noted. DIAGNOSTIC RESULTS: Laboratory: Hematology: WBCs 7.77, hemoglobin 11.4, hematocrit 34.3, MCV 91.7, platelets 219,000. Chemistry: Sodium 137, potassium 3.3, chloride 96, CO2 29, BUN 5, creatinine 0.5, glucose 91. Imaging: She has had several vascular studies. She has extensive aortoiliac atherosclerotic disease involving the arteries of bilateral extremities. ASSESSMENT AND PLAN: 1. Respiratory failure, with respiratory status improving. 2. History of chronic obstructive pulmonary disease. 3. Chronic diarrhea. She states she was diagnosed with irritable bowel syndrome in [place], and has been seen by a offset lithographic press setter. She reports her last colonoscopy was about 3 years ago. She reports chronic diarrhea, and uses Imodium as needed. Stool for C. difficile toxin was negative. Patient prefers to follow up with her offset lithographic press setter in [place] when she is able to be discharged. We will be available while she is in the hospital as needed. Please re-consult Dr. Fernandes if needed. Thank you for this consultation. Dictated by WILLIAN Galaviz for Richy Fernandes MD cc: WILLIAN Ochoa MD
[2017-07-31 05:44] LABS: MANUAL DIFF NEEDED? NO
[2017-07-31 05:59] LABS: BASO% 0.2 % (0.0-0.8); EOS# 0.05 X1000 (0.0-0.7); EOS% 0.8 % (0.0-10.0); HEMOGLOBIN 10.6 g/dL (12.0-16.0); IMM GRAN# 0.02 X1000 (0.0-0.04); IMM GRAN% 0.3 % (0.0-0.5); LYMPH# 0.47 X1000 (1.2-3.4); LYMPH% 7.4 % (20.5-51.1); MCH 29.9 PG (27-31); MCHC 32.1 g/dL (33-37); MCV 93.2 FL (81-99); MONO# 0.65 X1000 (0.11-0.59); MONO% 10.2 % (1.7-9.3); MPV 10.9 FL (7.4-10.4); NEUT% 81.1 % (42.2-75.2); PLT 252 X1000 (130-400); RBC 3.54 XMIL (4.2-5.4)
[2017-07-31] MEDS: SYNTHROID PO SCH (06:06)
[2017-07-31 06:14] LABS: AGAP 11; BUN 5 mg/dL (8-22); CALCIUM 8.6 mg/dL (8.8-10.2); CHLORIDE 96 mmol/L (98-107); COSMO 277; POTASSIUM 2.9 mmol/L (3.5-5.1); SODIUM 140 mmol/L (136-145); TCO2 33 mmol/L (25-35)
[2017-07-31] MEDS ORDERED: PREDNISONE PO SCH ×2 (09:00→12:26)
[2017-07-31] MEDS ORDERED: KLOR-CON PO ONE (09:12)
[2017-07-31] MEDS ORDERED: MAGNESIUM SULFATE 2 GM/S.W.I. 2 GM/50 ML IVPB IV ONE (09:13)
[2017-07-31] MEDS: EFFEXOR XR PO SCH (10:31)
[2017-07-31] MEDS: CULTURELLE PO SCH (10:32)
[2017-07-31] MEDS: PLAVIX PO SCH (10:32)
[2017-07-31] MEDS: PLETAL PO SCH (10:32)
[2017-07-31] MEDS: CRESTOR PO SCH (10:32)
[2017-07-31] MEDS: TOPROL XL PO SCH (10:32)
[2017-07-31] MEDS: AMITIZA PO SCH (10:32)
[2017-07-31] MEDS: NICODERM PATCH TD SCH (10:35)
[2017-07-31] MEDS: IMODIUM PO PRN (10:39)
[2017-07-31 11:40] VITALS: BP 153/62
[2017-08-01] MEDS ORDERED: KLOR-CON PO SCH (09:00)
[2017-08-01] MEDS ORDERED: PREDNISONE PO SCH (09:00)
--- NOTE | 2017-08-01 11:55 | DISCHARGE SUMMARY ---
ADMISSION DATE: 07/20/2017 DISCHARGE DATE: 07/31/2017 CONSULTATIONS: 1. Dr. Abelardo Andrade with General Surgery. 2. Dr. Fernandes with Gastroenterology. PERTINENT PROCEDURES: 1. Chest x-ray showed possibility of interstitial fibrosis or pneumonitis could not be excluded. Advise comparison with previous study. 2. Pulmonary arteriogram showed no pulmonary emboli. Multifocal bilateral patchy nodular infiltrates. 3. Bilateral venous Doppler study showed no evidence of deep venous thrombosis. Pulsatile venous flow which is suggestive of rapid heart failure. 4. Bilateral arterial Doppler's showed likely proximal disease either internal iliac or proximal common femoral on the right side. There is suggestion of PVD on the left but not the same severity on the right. Recommend correlating with CT angiogram. 5. Runoff CTA showed extensive aortoiliac atherosclerotic disease and atherosclerotic disease involving the arteries of both lower extremities. Patchy mild airspace consolidation at the right lower lobe. 6. Final chest x-ray showed stable chest. DISCHARGE DIAGNOSES: 1. Acute hypoxemic respiratory failure on presentation improved. Patient continues on 2 L nasal cannula. 2. Chronic obstructive pulmonary disease exacerbation improved. Patient discharged on p.o. prednisone. 3. Episodes of delirium in the ICU thought to be associated with alcohol withdrawal resolved. 4. Chronic diarrhea. Patient stated she was diagnosed in [place] with IBS that she was given medication for. However, she is still not controlled. Her inflammatory markers are extremely high concerning for inflammatory bowel disease. The patient is extensively vasculopathic with CT scan showing heavy arteriosclerotic burden on her aorta and its branches. She could also have underlying ischemic colitis. GI was consulted Dr. Fernandes. C. Diff was negative. The patient prefers to follow up with her supervisor cold rolling in [place] when she is discharged. 5. Hypothyroid. Continue Synthroid. HOSPITAL COURSE: Ms. Ring is a 62-year-old female who presented in to [facility] ER with complaints of shortness of breath that have been present for several weeks. It worsened on the day of her admission. She carries a past medical history of COPD and hypertension. Workup in the ED showed a chest x-ray with the possibility of interstitial fibrosis or pneumonitis that could not be excluded. White count was normal. Elevated D-dimer. ABG showed a pH of 7.32, pCO2 59, PO2 56, bicarb 26.7 and oxyhemoglobin 86.9 on 4 L nasal cannula. She was placed on BiPAP. Her sodium was 118, potassium of 2.9, chloride was 77. Cardiac enzyme showed a CK of 215. CK-MB 11.20 and negative troponin. Pulmonary arteriogram showed elevated D-dimer and showed no pulmonary emboli but did show multi focal bilateral patchy nodular infiltrates. She had some hypertension when she first arrived at 152/110 but her blood pressure dropped from 62/94 despite IV hydration. She was noted to be mildly tachycardic at 110. She was started on Levophed drip per protocol and admitted to the ICU at [place]. Daughter revealed that the patient normally drinks at least 6 beers per day but stopped 4 or 5 days ago. She is watched carefully for alcohol withdrawal. Dr. Andrade was consulted after they noticed a pulseless right lower extremity. They did a CT angio. The images were reviewed with Dr. Gilmore. It was felt that she would likely need some type of vascular intervention. The patient was continued on Levophed and she would need to be off that before they could do any type of stenting or bypass. The patient did develop some encephalopathy. They felt it was multifactorial related to her sodium as well as some alcohol withdrawal. They did a head CT that was negative. She was continued on IV antibiotics for possible pneumonia. The patient was transferred from [facility] to [facility]. Dr. Andrade felt that her right lower extremity seemed to be more of a chronic problem given the fact that she had been on Pletal L in the past and she has probably had some chronic long-standing problems. A CTA of her lower extremity did show that she has perfusion. This was discussed with Dr. Gilmore who took over for Dr. Andrade. She did not have to undergo any surgical intervention. She was able to come off her Levophed. She still remained with some encephalopathy. She was requiring 4 point restraints at one point. They were given p.r.n. phenobarbital as well as Ativan as well as continued on BiPAP. Her encephalopathy slowly resolved. She was able to come off restraints. She was slowly weaned off the BiPAP and onto a Ventimask. The patient did start having chronic recurrent diarrhea secondary to her irritable bowel syndrome. She was initiated back on her home medications for that as well as her home medications for her PVD. Her breathing has significantly improved as well as her ABG. She was able to move out of the ICU to the CICU to the regular floor. She was weaned down to nasal cannula. We did check all stool studies. She showed some moderate WBC's and negative for occult blood. Negative C. Diff. We did consult GI, however, the patient prefers to follow up with her own supervisor cold rolling back in [place]. She has been weaned down to 2 L nasal cannula. Patient is being discharged today. VITAL SIGNS: Temperature is 98 degrees, heart rate 77, respirations 20, blood pressure 153/62, O2 is 95% on 2 L nasal cannula. DISCHARGE DIET: Regular. DISCHARGE MEDICATIONS: 1. Cilostazol 100 mg p.o. b.i.d. 2. Pletal 100 mg p.o. b.i.d. 3. Plavix 75 mg p.o. daily. 4. Nexium 20 mg p.o. daily. 5. Gabapentin 600 mg p.o. b.i.d. 6. Robinul 0.5 mg p.o. b.i.d. 7. Culturelle 1 each p.o. b.i.d. 8. Synthroid 88 mcg p.o. b.i.d. 9. Synthroid 88 mcg p.o. daily. 10. Imodium 400 mg p.o. t.i.d. p.r.n. 11. Amitiza 8 mcg p.o. b.i.d. 12. Toprol-XL 50 mg p.o. daily. 13. Nitroglycerin 0.4 mg sublingual p.r.n. 14. Klor-Con 20 mEq p.o. daily. 15. Prednisone 20 mg p.o. daily for 5 days. 16. Crestor 40 mg p.o. daily. 17. Effexor XR 150 mg p.o. daily. FOLLOW-UP: Ms. Ring is being discharged home with family. She will follow up with her supervisor cold rolling in [place] as well as her PCP. Continue taking all home medications as prescribed. She can return to the ED for any worsening of symptoms. TIME SPENT: Greater than 30 minutes. Dictated by WILLIAN Brown for Dago Barajas MD cc: Dago Barajas MD
== END 2017-07-31 14:50 | disposition home or self-care (01) ==
LOC: P.ED 11:15 → SUATTDRO 13:26 → P.ICU 13:26 → ICU 07-21 18:47 → 4N 07-28 20:44
PROVIDERS: ATTEND Internal Medicine